=== PATIENT | male | born 1975 | race Caucasian/White ===

== ENCOUNTER 2016-07-21 19:29 | Emergency (ER) | payer OTHER ==
[~2016-07-21 19:29] MED LIST: BUPR15TA PO; CHLO25TA PO; DOXY100C PO; MYCARDIS PO; NORCOTAB PO; REGL10TA6 PO; TRAZ50TA4 PO; ZOLO50TA PO; lortab elixir PO
[2016-07-21] MEDS ORDERED: NORCO, ANEXSIA 5/325MG TABLET (HYDROcodone/ACETAMINOPHEN) As Ordered ONE (20:05)
[2016-07-21 20:19] LABS: BASO % 0.7 % (0.0-1.0); EOS # 0.2 K/mm3 (0.0-0.50); EOS % 2.7 % (0.0-3.0); LARGE UNSTAINED CELL # 0.2 K/mm3 (0.0-0.4); LARGE UNSTAINED CELL % 2.8 % (0.0-4.0); LYMPH # 1.9 K/mm3 (1.5-4.5); LYMPH % 28.8 % (24.0-44.0); MEAN CORPUSCULAR HEMOGLOBIN 30.6 pg (27.0-33.0); MEAN CORPUSCULAR VOLUME 83.3 fl (80.0-96.0); MONO # 0.5 K/mm3 (0.0-0.8); MONO % 6.8 % (0.0-5.0); NEUTROPHILS # 3.9 K/mm3 (1.8-7.7); NEUTROPHILS % 58.2 % (36.0-66.0); PLATELET COUNT, AUTOMATED 277 k/mm3 (150-450); RED CELL DISTRIBUTION WIDTH 11.9 % (11.5-14.5); WHITE BLOOD COUNT 6.7 K/mm3 (4.0-10.0)
[2016-07-21 20:20] LABS: MEAN CORPUSCULAR HGB CONC 36.7 g/dl (32.0-36.5)
[2016-07-21 20:22] LABS: INR 0.98
[2016-07-21 20:41] LABS: ANION GAP 6 MEQ/L (8-16); BLOOD UREA NITROGEN 8 MG/DL (7-18); CALCIUM LEVEL 8.4 MG/DL (8.5-10.1); CARBON DIOXIDE LEVEL 31 MEQ/L (21-32); CHLORIDE LEVEL 104 MEQ/L (98-107); CREATININE FOR GFR 1.18 MG/DL (0.70-1.30); GLOMERULAR FILTRATION RATE > 60.0 (>60); GLUCOSE, FASTING 126 MG/DL (70-105); POTASSIUM SERUM 3.7 MEQ/L (3.5-5.1); SODIUM LEVEL 141 MEQ/L (136-145)
--- NOTE | 2016-07-21 22:10 | REPUSA ---
CLINICAL HISTORY: Pain. COMMENTS: Real time sonography with duplex doppler of the left lower extremity was performed with attention to the major deep venous structures. Evaluation reveals the left common femoral, superficial femoral and popliteal veins to be completely compressible without intraluminal thrombus. There is normal spontaneous phasic flow and augmentation. The greater saphenous/common femoral vein junction is patent. IMPRESSION: No evidence of DVT in left lower extremity.. Thank you for your kind referral of this patient.
[2016-07-21] MEDS ORDERED: NORCO 5/325MG TABLET (BULK) As Ordered ONE (22:53)
--- NOTE | 2016-07-21 22:59 | EDDOCDS ---
Nurse's Notes [facility] Name: Jamir Whitehead Age: 41 yrs Sex: Male : 1975 Arrival Date: 07/21/2016 Time: 19:29 Bed PD Private MD: TNAngel MENDOZA Diagnosis: Pain in left lower leg Presentation: 07/21 19:38 Presenting complaint: Patient states: left leg with painful, firm area near knee. Lower ttb leg edema and redness x3 days. Denies injuries, SOB, fever. Adult Sepsis Screening: The patient does not have new or worsening altered mentation. Patient's respiratory rate is less than 22. Systolic blood pressure is greater than 100. Patient has a qSOFA score of 0- Negative Sepsis Screen. Suicide/Homicide risk assessment- the patient denies having any suicidal and/or homicidal ideations and does not present with any other emotional, behavioral or mental health complaints. 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 Transition of care: patient was not received from another setting of care. 19:38 Acuity: SIRENA Level 3 ttb 19:38 Method Of Arrival: Walkin/Carried/Asstd ttb Triage Assessment: 19:43 General: Appears in no apparent distress, well nourished, well groomed, Behavior is ttb appropriate for age, cooperative, pleasant, quiet. Pain: Location: left leg/foot 7/10. HIV screening NA for this visit Offered previously. Neurological: Level of Consciousness is awake, alert. Respiratory: No deficits noted. Airway is patent Respiratory effort is even, unlabored, Denies cough, shortness of breath. Derm: Skin is normal. Injury Description: No known injury. Historical: - Allergies: no known allergies; - Home Meds: 1. Buproprion 300 mg table daily daily (Last dose: 07/21/2016 08:45) 2. telmisartan 80 mg oral tab 1 tab once daily (Last dose: 07/21/2016 08:45) 3. prazosin 1 mg Oral cap daily (Last dose: 07/21/2016 08:45) 4. zaleplon 10 mg oral cap 1 cap once daily (Last dose: 07/21/2016 08:45) 5. chlorthalidone 25 mg oral tab 1 tab once daily (Last dose: 07/21/2016 08:45) 6. nortriptyline 50 mg Oral cap once daily (Last dose: 07/21/2016 08:45) 7. duloxetine 20 mg Oral cpDR 1 cap daily (Last dose: 07/21/2016 08:45) 8. Lidocaine 2% application to affected area as need three times a day (Last dose: 07/21/2016) - PMHx: Gout; Hypertension; Kidney stones; MRSA; Depression; - PSHx: Lymphnode removal; Right Shoulder Reconstruction; Swatara Teeth; general surgery to left lower abd; - Social history: Smoking status: Patient states was never smoker of tobacco. Patient/guardian denies using alcohol, street drugs, No barriers to communication noted, The patient speaks fluent Wallisian, Speaks appropriately for age. - Family history: Not pertinent. - : The pt / caregiver states he / she is not on anticoagulants. Home medication list is obtained from the patient. - Exposure Risk Screening:: None identified. Screenin:35 Infection Control. elp 22:57 Screening information is obtained from the patient. Fall risk: No risks identified. rs3 Assistance ADL's: requires no assistance with activities of daily living. Abuse/DV Screen: The patient / caregiver reports he/she is: not in a situation that causes fear, pain or injury. Nutritional screening: No deficits noted. Advance Directives: Currently, there is no health care proxy. There is no active DNR order. home support is adequate. Assessment: 22:56 General: Appears in no apparent distress, Behavior is appropriate for age, cooperative. rs3 Pain: Location: left leg. Neurological: Level of Consciousness is awake, alert, Oriented to person, place, time. Respiratory: Airway is patent Respiratory effort is even, unlabored, Respiratory pattern is regular, symmetrical, Breath sounds are clear bilaterally. Derm: Skin is pink, warm & dry. Vital Signs: 19:30 BP 166 / 99; Pulse 94; Resp 18; Temp 99.0; Pulse Ox 97% ; Weight 104.33 kg; Height 71 elp in. (180.34 cm); 22:54 BP 158 / 101; Pulse 88; Resp 18 S; Temp 97.9(O); Pulse Ox 95% on R/A; Pain 5/10; jp4 19:30 Body Mass Index 32.08 (104.33 kg, 180.34 cm) elp Vitals: 19:30 Log In Time: July 21, 2016 at 19:28. [facility] ED Course: 19:30 Patient visited by Kate Ruvalcaba PCA. elp 19:30 [facility] is Private Physician. elp 19:30 Patient moved to Waiting elp 19:31 Patient visited by Kate Ruvalcaba PCA. elp 19:31 Patient moved to Pre RCE elp 19:39 Triage Initiated ttb 19:43 Patient visited by Marilou Davis RN. ttb 19:48 Patient moved to Triage 1 ttb 19:50 Bernardino Tracy RPA-C is PSYCHIATRICP. ck7 19:50 Parviz Dupree DO is Attending Physician. ck7 19:51 Patient visited by Bernardino Tracy RPA-C. ck7 20:11 Patient moved to TR1 rs3 20:11 Pt & Aptt Sent. rs3 20:11 MED Profile Sent. rs3 20:11 CBC with Diff Sent. rs3 20:55 Patient visited by Bernardino Tracy RPA-C. ck7 21:08 [facility] Payment Agreement was scanned into [employer] and attached to record. ks16 21:54 Patient visited by Bernardino Tracy RPA-C. ck7 22:46 Patient visited by Bernardino Tracy RPA-C. ck7 22:47 [facility] is Referral Physician. ck7 22:48 Patient moved to PD jp4 22:55 Patient visited by Sukhjinder Coelho. jp4 22:57 No IV's were initiated during this patient's visit. No procedures done that require rs3 assistance. 22:58 The patient / caregiver is instructed regarding the plan of care and ED course. rs3 22:59 US Lower Extremity R/O DVT Returned. EDMS Administered Medications: 20:11 Drug: HYDROcodone-acetaminophen 1 tabs [hydrocodone 5 mg-acetaminophen 325 mg tablet (1 rs3 tabs)] Route: PO; 22:55 Drug: HYDROcodone-acetaminophen 4 pack- 1 packets [hydrocodone 5 mg-acetaminophen 325 rs3 mg tablet (1 tabs)] {Co-Signature: ttb (Marilou Davis RN).} Route: PO; Order Results: Lab Order: CBC with Diff; SPEC'M 07/21/16 20:06 Test: WHITE BLOOD COUNT; Value: 6.7; Range: 4.0-10.0; Units: K/mm3; Status: F Test: RED BLOOD COUNT; Value: 5.14; Range: 4.30-6.10; Units: M/mm3; Status: F Test: HEMOGLOBIN; Value: 15.7; Range: 14.0-18.0; Units: g/dl; Status: F Test: HEMATOCRIT; Value: 42.8; Range: 42.0-52.0; Units: %; Status: F Test: MEAN CORPUSCULAR VOLUME; Value: 83.3; Range: 80.0-96.0; Units: fl; Status: F Test: MEAN CORPUSCULAR HEMOGLOBIN; Value: 30.6; Range: 27.0-33.0; Units: pg; Status: F Test: MEAN CORPUSCULAR HGB CONC; Value: 36.7; Range: 32.0-36.5; Abnormal: Above high normal; Units: g/dl; Status: F Test: RED CELL DISTRIBUTION WIDTH; Value: 11.9; Range: 11.5-14.5; Units: %; Status: F Test: PLATELET COUNT, AUTOMATED; Value: 277; Range: 150-450; Units: k/mm3; Status: F Test: NEUTROPHILS %; Value: 58.2; Range: 36.0-66.0; Units: %; Status: F Test: LYMPH %; Value: 28.8; Range: 24.0-44.0; Units: %; Status: F Test: MONO %; Value: 6.8; Range: 0.0-5.0; Abnormal: Above high normal; Units: %; Status: F Test: EOS %; Value: 2.7; Range: 0.0-3.0; Units: %; Status: F Test: BASO %; Value: 0.7; Range: 0.0-1.0; Units: %; Status: F Test: LARGE UNSTAINED CELL %; Value: 2.8; Range: 0.0-4.0; Units: %; Status: F Test: NEUTROPHILS #; Value: 3.9; Range: 1.8-7.7; Units: K/mm3; Status: F Test: LYMPH #; Value: 1.9; Range: 1.5-4.5; Units: K/mm3; Status: F Test: MONO #; Value: 0.5; Range: 0.0-0.8; Units: K/mm3; Status: F Test: EOS #; Value: 0.2; Range: 0.0-0.50; Units: K/mm3; Status: F Test: BASO #; Value: 0.0; Range: 0.0-0.2; Units: K/mm3; Status: F Test: LARGE UNSTAINED CELL #; Value: 0.2; Range: 0.0-0.4; Units: K/mm3; Status: F Lab Order: MED Profile; SPEC'M 07/21/16 20:06 Test: GLUCOSE, FASTING; Value: 126; Range: 70-105; Abnormal: Above high normal; Units: MG/DL; Status: F Test: BLOOD UREA NITROGEN; Value: 8; Range: 7-18; Units: MG/DL; Status: F Test: CREATININE FOR GFR; Value: 1.18; Range: 0.70-1.30; Units: MG/DL; Status: F Test: GLOMERULAR FILTRATION RATE; Value: > 60.0; Range: >60; Status: F Test: SODIUM LEVEL; Value: 141; Range: 136-145; Units: MEQ/L; Status: F Test: POTASSIUM SERUM; Value: 3.7; Range: 3.5-5.1; Units: MEQ/L; Status: F Test: CHLORIDE LEVEL; Value: 104; Range: 98-107; Units: MEQ/L; Status: F Test: CARBON DIOXIDE LEVEL; Value: 31; Range: 21-32; Units: MEQ/L; Status: F Test: ANION GAP; Value: 6; Range: 8-16; Abnormal: Below low normal; Units: MEQ/L; Status: F Test: CALCIUM LEVEL; Value: 8.4; Range: 8.5-10.1; Abnormal: Below low normal; Units: MG/DL; Status: F Test Note: ; Units are mL/min/1.73 m2 Chronic Kidney Disease Staging per NKF: Stage I & II GFR >=60 Normal to Mildly Decreased Stage III GFR 30-59 Moderately Decreased Stage IV GFR 15-29 Severely Decreased Stage V GFR <15 Very Little GFR Left ESRD GFR <15 on FACTORY SUPERVISOR Lab Order: Pt & Aptt; SPEC'M 07/21/16 20:06 Test: PROTHROMBIN TIME; Value: 13.1; Range: 12.3-14.5; Units: SECONDS; Status: F Test: INR; Value: 0.98; Status: F Test: PARTIAL THROMBOPLASTIN TIME; Value: 28.4; Range: 26.6-37.1; Units: SECONDS; Status: F Test Note: ; THERAPUTIC HUMAN INR VALUES INDICATIONS NORMAL RANGES PROPHYLAXIS/TREATMENT OF: VENOUS THROMBOSIS 2.0-3.0 PULMONARY EMBOLISM 2.0-3.0 PREVENTION OF SYSTEMIC EMBOLISM FROM: TISSUE HEART VALVES 2.0-3.0 ACUTE MYOCARDIAL INFARCTION 2.0-3.0 VALVULAR HEART DISEASE 2.0-3.0 ATRIAL FIBRILLATION 2.0-3.0 MECHANICAL VALVES(HIGH RISK) 2.5-3.5 RECURRENT MYOCARDIAL INFARCTION 2.5-3.5 Radiology Order: US Lower Extremity R/O DVT Test: US Lower Extremity R/O DVT REASON FOR EXAMINATION: Deformity/Swelling; ; CLINICAL HISTORY: Pain.; COMMENTS:; Real time sonography with duplex doppler of the left lower extremity was performed with attention to; the major deep venous structures.; Evaluation reveals the left common femoral, superficial femoral and popliteal veins to be completely; compressible without intraluminal thrombus. There is normal spontaneous phasic flow and augmentation.; The greater saphenous/common femoral vein junction is patent.; IMPRESSION:; No evidence of DVT in left lower extremity..; Thank you for your kind referral of this patient.; ; Outcome: 22:48 Discharge ordered by Provider. ck7 22:57 Discharge Assessment: patient administered narcotics - no. The following High Risk rs3 Discharge criteria are identified: None. Discharged to home with family. Condition: stable. Discharge instructions given to patient, Instructed on discharge instructions, follow up and referral plans. medication usage, Demonstrated understanding of instructions, medications, Pt was receptive of discharge instructions/ teaching. Prescriptions given X. Prescriptions given X 1. No special radiology studies were completed. Property :Personal belongings accompany Pt. 22:58 Patient left the ED. rs3 Signatures: Dispatcher [employer] EDGeorgette Singleton,RN RN rs3 Bernardino Tracy, RPA-C RPA-Cck7 Marilou aDvis RN RN ttb Kate Ruvalcaba, GAMER GAMER elp Cleme, Sukhjinder jp4 Vernell Hahn, Reg Reg ks16 Marilou Davis RN ttb MTDD
--- NOTE | 2016-07-21 22:59 | EDDOCDS ---
Physician Documentation [facility] Name: Jamir Whitehead Age: 41 yrs Sex: Male : 1975 Arrival Date: 07/21/2016 Time: 19:29 Bed [facility] Disposition: 07/21/16 22:48 Discharged to Home/Self Care. Impression: Pain in left lower leg. - Condition is Stable. - Discharge Instructions: Musculoskeletal Pain. - Prescriptions for Hemphill 5- 325 mg Oral Tablet - take 1 tablet by ORAL route every 6 hours As needed MDD: 4 tabs; 6 tablet. - Medication Reconciliation, Local Pharmacy Hours form. - [facility]; When: 2 - 3 days; Reason: Recheck today's complaints, Continuance of care. - Problem is new. - Symptoms have improved. - Notes: USE MEDICATION INSTRUCTED, FOLLOW UP WITH YOUR DOCTOR ON SATURDAY, RETURN TO THE ER IF THE SYMPTOMS WORSEN OR BECOME CONCERNING Historical: - Allergies: no known allergies; - Home Meds: 1. Buproprion 300 mg table daily daily (Last dose: 07/21/2016 08:45) 2. telmisartan 80 mg oral tab 1 tab once daily (Last dose: 07/21/2016 08:45) 3. prazosin 1 mg Oral cap daily (Last dose: 07/21/2016 08:45) 4. zaleplon 10 mg oral cap 1 cap once daily (Last dose: 07/21/2016 08:45) 5. chlorthalidone 25 mg oral tab 1 tab once daily (Last dose: 07/21/2016 08:45) 6. nortriptyline 50 mg Oral cap once daily (Last dose: 07/21/2016 08:45) 7. duloxetine 20 mg Oral cpDR 1 cap daily (Last dose: 07/21/2016 08:45) 8. Lidocaine 2% application to affected area as need three times a day (Last dose: 07/21/2016) - PMHx: Gout; Hypertension; Kidney stones; MRSA; Depression; - PSHx: Lymphnode removal; Right Shoulder Reconstruction; Bowie Teeth; general surgery to left lower abd; - Social history: Smoking status: Patient states was never smoker of tobacco. Patient/guardian denies using alcohol, street drugs, No barriers to communication noted, The patient speaks fluent Persian, Speaks appropriately for age. - Family history: Not pertinent. - : The pt / caregiver states he / she is not on anticoagulants. Home medication list is obtained from the patient. - Exposure Risk Screening:: None identified. Vital Signs: 07/21 19:30 BP 166 / 99; Pulse 94; Resp 18; Temp 99.0; Pulse Ox 97% ; Weight 104.33 kg / 230.01 elp lbs; Height 71 in. (180.34 cm); 22:54 BP 158 / 101; Pulse 88; Resp 18 S; Temp 97.9(O); Pulse Ox 95% on R/A; Pain 5/10; jp4 19:30 Body Mass Index 32.08 (104.33 kg, 180.34 cm) elp MDM: 19:55 Financial registration complete. ks16 19:58 HYDROcodone-acetaminophen 5 mg-325 mg 1 tabs PO once ordered. ck7 19:59 CBC with Diff Ordered. EDMS 19:59 MED Profile Ordered. EDMS 19:59 Pt & Aptt Ordered. EDMS 19:59 US Lower Extremity R/O DVT Ordered. EDMS 20:04 Knee, Complete Ordered. EDMS 20:55 CBC with Diff Reviewed. ck7 20:55 MED Profile Reviewed. ck7 20:55 Pt & Aptt Reviewed. ck7 21:08 [facility] Payment Agreement was scanned into [employer] and attached to record. ks16 22:50 HYDROcodone-acetaminophen 4 pack- 5 mg-325 mg 1 packets PO Per package directions; ck7 Dispense with patient. 1 po q4h prn for pain ordered. Administered Medications: 20:11 Drug: HYDROcodone-acetaminophen 1 tabs [hydrocodone 5 mg-acetaminophen 325 mg tablet (1 rs3 tabs)] Route: PO; 22:55 Drug: HYDROcodone-acetaminophen 4 pack- 1 packets [hydrocodone 5 mg-acetaminophen 325 rs3 mg tablet (1 tabs)] {Co-Signature: ttb (Marilou Davis RN).} Route: PO; Signatures: Dispatcher [employer] EDMS Georgette Romero RN RN rs3 Bernardino Tracy, MARIAN-C RPA-Cck7 Marilou Davis RN RN ttb Vernell Hahn, Reg Reg ks16 Marilou Ryan RN ttb The chart was reviewed and I authenticate all verbal orders and agree with the evaluation and treatment provided.Attachments: 21:08 [facility] Payment Agreement ks16 MTDD
--- NOTE | 2016-07-22 13:42 | REP ---
LEFT KNEE SERIES, COMPLETE: 07/21/2016. Clinical history: Pain and swelling. Findings: Five views are provided. Some minor prepatellar swelling on the sunrise view but no patellar subluxation, dislocation or fracture. No joint space narrowing. I cannot confirm a definite suprapatellar effusion on the lateral view. Medial and lateral compartments without narrowing. There are tiny spurs tibial spines but no loose body, osteochondral defect, avulsion, displaced fracture or other acute finding. Impression: 1. Minor degenerative changes and some prepatellar swelling. No other acute finding. Signed by Pepe Eller MD 07/22/2016 07:22 P
--- NOTE | 2016-07-23 23:59 | EDDOCDS ---
Nurse's Notes [facility] Name: Jamir Whitehead Age: 41 yrs Sex: Male : 1975 Arrival Date: 07/21/2016 Time: 19:29 Bed PD Private MD: MSAngel MENDOZA Diagnosis: Pain in left lower leg Presentation: 07/21 19:38 Presenting complaint: Patient states: left leg with painful, firm area near knee. Lower ttb leg edema and redness x3 days. Denies injuries, SOB, fever. Adult Sepsis Screening: The patient does not have new or worsening altered mentation. Patient's respiratory rate is less than 22. Systolic blood pressure is greater than 100. Patient has a qSOFA score of 0- Negative Sepsis Screen. Suicide/Homicide risk assessment- the patient denies having any suicidal and/or homicidal ideations and does not present with any other emotional, behavioral or mental health complaints. 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 Transition of care: patient was not received from another setting of care. 19:38 Acuity: SIRENA Level 3 ttb 19:38 Method Of Arrival: Walkin/Carried/Asstd ttb Triage Assessment: 19:43 General: Appears in no apparent distress, well nourished, well groomed, Behavior is ttb appropriate for age, cooperative, pleasant, quiet. Pain: Location: left leg/foot 7/10. HIV screening NA for this visit Offered previously. Neurological: Level of Consciousness is awake, alert. Respiratory: No deficits noted. Airway is patent Respiratory effort is even, unlabored, Denies cough, shortness of breath. Derm: Skin is normal. Injury Description: No known injury. Historical: - Allergies: no known allergies; - Home Meds: 1. Buproprion 300 mg table daily daily (Last dose: 07/21/2016 08:45) 2. telmisartan 80 mg oral tab 1 tab once daily (Last dose: 07/21/2016 08:45) 3. prazosin 1 mg Oral cap daily (Last dose: 07/21/2016 08:45) 4. zaleplon 10 mg oral cap 1 cap once daily (Last dose: 07/21/2016 08:45) 5. chlorthalidone 25 mg oral tab 1 tab once daily (Last dose: 07/21/2016 08:45) 6. nortriptyline 50 mg Oral cap once daily (Last dose: 07/21/2016 08:45) 7. duloxetine 20 mg Oral cpDR 1 cap daily (Last dose: 07/21/2016 08:45) 8. Lidocaine 2% application to affected area as need three times a day (Last dose: 07/21/2016) - PMHx: Gout; Hypertension; Kidney stones; MRSA; Depression; - PSHx: Lymphnode removal; Right Shoulder Reconstruction; [place] Teeth; general surgery to left lower abd; - Social history: Smoking status: Patient states was never smoker of tobacco. Patient/guardian denies using alcohol, street drugs, No barriers to communication noted, The patient speaks fluent Yemeni, Speaks appropriately for age. - Family history: Not pertinent. - : The pt / caregiver states he / she is not on anticoagulants. Home medication list is obtained from the patient. - Exposure Risk Screening:: None identified. Screenin:35 Infection Control. elp 22:57 Screening information is obtained from the patient. Fall risk: No risks identified. rs3 Assistance ADL's: requires no assistance with activities of daily living. Abuse/DV Screen: The patient / caregiver reports he/she is: not in a situation that causes fear, pain or injury. Nutritional screening: No deficits noted. Advance Directives: Currently, there is no health care proxy. There is no active DNR order. home support is adequate. Assessment: 22:56 General: Appears in no apparent distress, Behavior is appropriate for age, cooperative. rs3 Pain: Location: left leg. Neurological: Level of Consciousness is awake, alert, Oriented to person, place, time. Respiratory: Airway is patent Respiratory effort is even, unlabored, Respiratory pattern is regular, symmetrical, Breath sounds are clear bilaterally. Derm: Skin is pink, warm & dry. Vital Signs: 19:30 BP 166 / 99; Pulse 94; Resp 18; Temp 99.0; Pulse Ox 97% ; Weight 104.33 kg; Height 71 elp in. (180.34 cm); 22:54 BP 158 / 101; Pulse 88; Resp 18 S; Temp 97.9(O); Pulse Ox 95% on R/A; Pain 5/10; jp4 19:30 Body Mass Index 32.08 (104.33 kg, 180.34 cm) elp Vitals: 19:30 Log In Time: July 21, 2016 at 19:28. [facility] ED Course: 19:30 Patient visited by Kate Ruvalcaba PCA. elp 19:30 [facility] is Private Physician. elp 19:30 Patient moved to Waiting elp 19:31 Patient visited by Kate Ruvalcaba PCA. elp 19:31 Patient moved to Pre RCE elp 19:39 Triage Initiated ttb 19:43 Patient visited by Marilou Davis RN. ttb 19:48 Patient moved to Triage 1 ttb 19:50 [facility] Tracy [facility] ck7 19:50 Parviz Durpee DO is Attending Physician. ck7 19:51 Patient visited by Bernardino Tracy RPA-C. ck7 20:11 Patient moved to TR1 rs3 20:11 Pt & Aptt Sent. rs3 20:11 MED Profile Sent. rs3 20:11 CBC with Diff Sent. rs3 20:55 Patient visited by Bernardino Tracy RPA-C. ck7 21:08 [facility] Payment Agreement was scanned into [employer] and attached to record. ks16 21:54 Patient visited by Bernardino Tracy RPA-C. ck7 22:46 Patient visited by Bernardino Tracy RPA-C. ck7 22:47 [facility] is Referral Physician. ck7 22:48 Patient moved to PD jp4 22:55 Patient visited by Sukhjinder Coelho. jp4 22:57 No IV's were initiated during this patient's visit. No procedures done that require rs3 assistance. 22:58 The patient / caregiver is instructed regarding the plan of care and ED course. rs3 22:59 US Lower Extremity R/O DVT Returned. EDMS 07/22 13:56 Knee, Complete Returned. EDMS 22:53 T-Sheet-- Draft Copy was scanned into [employer] and attached to record. klr 07/23 10:34 Radiology Report was scanned into [employer] and attached to record. gb Administered Medications: 07/21 20:11 Drug: HYDROcodone-acetaminophen 1 tabs [hydrocodone 5 mg-acetaminophen 325 mg tablet (1 rs3 tabs)] Route: PO; 22:55 Drug: HYDROcodone-acetaminophen 4 pack- 1 packets [hydrocodone 5 mg-acetaminophen 325 rs3 mg tablet (1 tabs)] {Co-Signature: ttb (Marilou Davis RN).} Route: PO; Order Results: Lab Order: CBC with Diff; SPEC'M 07/21/16 20:06 Test: WHITE BLOOD COUNT; Value: 6.7; Range: 4.0-10.0; Units: K/mm3; Status: F Test: RED BLOOD COUNT; Value: 5.14; Range: 4.30-6.10; Units: M/mm3; Status: F Test: HEMOGLOBIN; Value: 15.7; Range: 14.0-18.0; Units: g/dl; Status: F Test: HEMATOCRIT; Value: 42.8; Range: 42.0-52.0; Units: %; Status: F Test: MEAN CORPUSCULAR VOLUME; Value: 83.3; Range: 80.0-96.0; Units: fl; Status: F Test: MEAN CORPUSCULAR HEMOGLOBIN; Value: 30.6; Range: 27.0-33.0; Units: pg; Status: F Test: MEAN CORPUSCULAR HGB CONC; Value: 36.7; Range: 32.0-36.5; Abnormal: Above high normal; Units: g/dl; Status: F Test: RED CELL DISTRIBUTION WIDTH; Value: 11.9; Range: 11.5-14.5; Units: %; Status: F Test: PLATELET COUNT, AUTOMATED; Value: 277; Range: 150-450; Units: k/mm3; Status: F Test: NEUTROPHILS %; Value: 58.2; Range: 36.0-66.0; Units: %; Status: F Test: LYMPH %; Value: 28.8; Range: 24.0-44.0; Units: %; Status: F Test: MONO %; Value: 6.8; Range: 0.0-5.0; Abnormal: Above high normal; Units: %; Status: F Test: EOS %; Value: 2.7; Range: 0.0-3.0; Units: %; Status: F Test: BASO %; Value: 0.7; Range: 0.0-1.0; Units: %; Status: F Test: LARGE UNSTAINED CELL %; Value: 2.8; Range: 0.0-4.0; Units: %; Status: F Test: NEUTROPHILS #; Value: 3.9; Range: 1.8-7.7; Units: K/mm3; Status: F Test: LYMPH #; Value: 1.9; Range: 1.5-4.5; Units: K/mm3; Status: F Test: MONO #; Value: 0.5; Range: 0.0-0.8; Units: K/mm3; Status: F Test: EOS #; Value: 0.2; Range: 0.0-0.50; Units: K/mm3; Status: F Test: BASO #; Value: 0.0; Range: 0.0-0.2; Units: K/mm3; Status: F Test: LARGE UNSTAINED CELL #; Value: 0.2; Range: 0.0-0.4; Units: K/mm3; Status: F Lab Order: MED Profile; [facility]'M 07/21/16 20:06 Test: GLUCOSE, FASTING; Value: 126; Range: 70-105; Abnormal: Above high normal; Units: MG/DL; Status: F Test: BLOOD UREA NITROGEN; Value: 8; Range: 7-18; Units: MG/DL; Status: F Test: CREATININE FOR GFR; Value: 1.18; Range: 0.70-1.30; Units: MG/DL; Status: F Test: GLOMERULAR FILTRATION RATE; Value: > 60.0; Range: >60; Status: F Test: SODIUM LEVEL; Value: 141; Range: 136-145; Units: MEQ/L; Status: F Test: POTASSIUM SERUM; Value: 3.7; Range: 3.5-5.1; Units: MEQ/L; Status: F Test: CHLORIDE LEVEL; Value: 104; Range: 98-107; Units: MEQ/L; Status: F Test: CARBON DIOXIDE LEVEL; Value: 31; Range: 21-32; Units: MEQ/L; Status: F Test: ANION GAP; Value: 6; Range: 8-16; Abnormal: Below low normal; Units: MEQ/L; Status: F Test: CALCIUM LEVEL; Value: 8.4; Range: 8.5-10.1; Abnormal: Below low normal; Units: MG/DL; Status: F Test Note: ; Units are mL/min/1.73 m2 Chronic Kidney Disease Staging per NKF: Stage I & II GFR >=60 Normal to Mildly Decreased Stage III GFR 30-59 Moderately Decreased Stage IV GFR 15-29 Severely Decreased Stage V GFR <15 Very Little GFR Left ESRD GFR <15 on FORM WORKER Lab Order: Pt & Aptt; SPEC'M 07/21/16 20:06 Test: PROTHROMBIN TIME; Value: 13.1; Range: 12.3-14.5; Units: SECONDS; Status: F Test: INR; Value: 0.98; Status: F Test: PARTIAL THROMBOPLASTIN TIME; Value: 28.4; Range: 26.6-37.1; Units: SECONDS; Status: F Test Note: ; THERAPUTIC HUMAN INR VALUES INDICATIONS NORMAL RANGES PROPHYLAXIS/TREATMENT OF: VENOUS THROMBOSIS 2.0-3.0 PULMONARY EMBOLISM 2.0-3.0 PREVENTION OF SYSTEMIC EMBOLISM FROM: TISSUE HEART VALVES 2.0-3.0 ACUTE MYOCARDIAL INFARCTION 2.0-3.0 VALVULAR HEART DISEASE 2.0-3.0 ATRIAL FIBRILLATION 2.0-3.0 MECHANICAL VALVES(HIGH RISK) 2.5-3.5 RECURRENT MYOCARDIAL INFARCTION 2.5-3.5 Radiology Order: US Lower Extremity R/O DVT Test: US Lower Extremity R/O DVT REASON FOR EXAMINATION: Deformity/Swelling; ; CLINICAL HISTORY: Pain.; COMMENTS:; Real time sonography with duplex doppler of the left lower extremity was performed with attention to; the major deep venous structures.; Evaluation reveals the left common femoral, superficial femoral and popliteal veins to be completely; compressible without intraluminal thrombus. There is normal spontaneous phasic flow and augmentation.; The greater saphenous/common femoral vein junction is patent.; IMPRESSION:; No evidence of DVT in left lower extremity..; Thank you for your kind referral of this patient.; ; Radiology Order: Knee, Complete Test: Knee, Complete REASON FOR EXAMINATION: Deformity/Swelling; LEFT KNEE SERIES, COMPLETE: 07/21/2016.; ; Clinical history: Pain and swelling.; ; Findings: Five views are provided. Some minor prepatellar swelling on the; sunrise view but no patellar subluxation, dislocation or fracture. No joint; space narrowing. I cannot confirm a definite suprapatellar effusion on the; lateral view. Medial and lateral compartments without narrowing. There are tiny; spurs tibial spines but no loose body, osteochondral defect, avulsion, displaced; fracture or other acute finding.; ; Impression:; ; 1. Minor degenerative changes and some prepatellar swelling. No other acute; finding.; ; ; Signed by; Pepe Eller MD 07/22/2016 07:22 P; Outcome: 22:48 Discharge ordered by Provider. ck7 22:57 Discharge Assessment: patient administered narcotics - no. The following High Risk rs3 Discharge criteria are identified: None. Discharged to home with family. Condition: stable. Discharge instructions given to patient, Instructed on discharge instructions, follow up and referral plans. medication usage, Demonstrated understanding of instructions, medications, Pt was receptive of discharge instructions/ teaching. Prescriptions given X. Prescriptions given X 1. No special radiology studies were completed. Property :Personal belongings accompany Pt. 22:58 Patient left the ED. rs3 Signatures: Dispatcher [employer] EDMS Debbie Rhoades, Reg Reg gb Georgette RomeroRN RN rs3 Bernardino Tracy, RPA-C RPA-Cck7 Marilou Davis, SAÚL RN ttb Kate Ruvalcaba, ONCOLOGY COORDINATOR ONCOLOGY COORDINATOR elp Laquita, Sukhjinder jp4 Vernell Hahn, Reg Reg ks16 [place] klr Marilou Davis RN ttb Chart Complete MTDD
--- NOTE | 2016-07-23 23:59 | EDDOCDS ---
Physician Documentation [facility] Name: Jamir Whitehead Age: 41 yrs Sex: Male : 1975 Arrival Date: 07/21/2016 Time: 19:29 Bed [facility] Disposition: 07/21/16 22:48 Discharged to Home/Self Care. Impression: Pain in left lower leg. - Condition is Stable. - Discharge Instructions: Musculoskeletal Pain. - Prescriptions for [place] 5- 325 mg Oral Tablet - take 1 tablet by ORAL route every 6 hours As needed MDD: 4 tabs; 6 tablet. - Medication Reconciliation, Local Pharmacy Hours form. - [facility]; When: 2 - 3 days; Reason: Recheck today's complaints, Continuance of care. - Problem is new. - Symptoms have improved. - Notes: USE MEDICATION INSTRUCTED, FOLLOW UP WITH YOUR DOCTOR ON SATURDAY, RETURN TO THE ER IF THE SYMPTOMS WORSEN OR BECOME CONCERNING Historical: - Allergies: no known allergies; - Home Meds: 1. Buproprion 300 mg table daily daily (Last dose: 07/21/2016 08:45) 2. telmisartan 80 mg oral tab 1 tab once daily (Last dose: 07/21/2016 08:45) 3. prazosin 1 mg Oral cap daily (Last dose: 07/21/2016 08:45) 4. zaleplon 10 mg oral cap 1 cap once daily (Last dose: 07/21/2016 08:45) 5. chlorthalidone 25 mg oral tab 1 tab once daily (Last dose: 07/21/2016 08:45) 6. nortriptyline 50 mg Oral cap once daily (Last dose: 07/21/2016 08:45) 7. duloxetine 20 mg Oral cpDR 1 cap daily (Last dose: 07/21/2016 08:45) 8. Lidocaine 2% application to affected area as need three times a day (Last dose: 07/21/2016) - PMHx: Gout; Hypertension; Kidney stones; MRSA; Depression; - PSHx: Lymphnode removal; Right Shoulder Reconstruction; [place] Teeth; general surgery to left lower abd; - Social history: Smoking status: Patient states was never smoker of tobacco. Patient/guardian denies using alcohol, street drugs, No barriers to communication noted, The patient speaks fluent Georgian, Speaks appropriately for age. - Family history: Not pertinent. - : The pt / caregiver states he / she is not on anticoagulants. Home medication list is obtained from the patient. - Exposure Risk Screening:: None identified. Vital Signs: 07/21 19:30 BP 166 / 99; Pulse 94; Resp 18; Temp 99.0; Pulse Ox 97% ; Weight 104.33 kg / 230.01 elp lbs; Height 71 in. (180.34 cm); 22:54 BP 158 / 101; Pulse 88; Resp 18 S; Temp 97.9(O); Pulse Ox 95% on R/A; Pain 5/10; jp4 19:30 Body Mass Index 32.08 (104.33 kg, 180.34 cm) elp MDM: 19:55 Financial registration complete. ks16 19:58 HYDROcodone-acetaminophen 5 mg-325 mg 1 tabs PO once ordered. ck7 19:59 CBC with Diff Ordered. EDMS 19:59 MED Profile Ordered. EDMS 19:59 Pt & Aptt Ordered. EDMS 19:59 US Lower Extremity R/O DVT Ordered. EDMS 20:04 Knee, Complete Ordered. EDMS 20:55 CBC with Diff Reviewed. ck7 20:55 MED Profile Reviewed. ck7 20:55 Pt & Aptt Reviewed. ck7 21:08 [facility] Payment Agreement was scanned into [employer] and attached to record. ks16 22:50 HYDROcodone-acetaminophen 4 pack- 5 mg-325 mg 1 packets PO Per package directions; ck7 Dispense with patient. 1 po q4h prn for pain ordered. 07/22 22:53 T-Sheet-- Draft Copy was scanned into [employer] and attached to record. klr 07/23 10:34 Radiology Report was scanned into [employer] and attached to record. gb Administered Medications: 07/21 20:11 Drug: HYDROcodone-acetaminophen 1 tabs [hydrocodone 5 mg-acetaminophen 325 mg tablet (1 rs3 tabs)] Route: PO; 22:55 Drug: HYDROcodone-acetaminophen 4 pack- 1 packets [hydrocodone 5 mg-acetaminophen 325 rs3 mg tablet (1 tabs)] {Co-Signature: ttb (Marilou Davis RN).} Route: PO; Signatures: Dispatcher [employer] EDMS Debbie Rhoades, Reg Reg gb Georgette Romero RN RN rs3 Bernardino Tracy, RPA-C RPA-Cck7 Marilou Davis RN RN ttb Vernell Hahn, Reg Reg ks16 [place] klr Marilou Davis RN ttruma The chart was reviewed and I authenticate all verbal orders and agree with the evaluation and treatment provided.Attachments: 21:08 [facility] Payment Agreement [email or web address] 07/22 22:53 T-Sheet-- Draft Copy klr Chart Complete MTDD
--- NOTE | 2016-07-23 23:59 | EDDOCDS ---
Physician Documentation [facility] Name: Jamir Whitehead Age: 41 yrs Sex: Male : 1975 Arrival Date: 07/21/2016 Time: 19:29 Bed [facility] Dis[facility]: 07/21/16 22:48 Discharged to Home/Self Care. Impression: Pain in left lower leg. - Condition is Stable. - Discharge Instructions: Musculoskeletal Pain. - Prescriptions for [place] 5- 325 mg Oral Tablet - take 1 tablet by ORAL route every 6 hours As needed MDD: 4 tabs; 6 tablet. - Medication Reconciliation, Local Pharmacy Hours form. - [facility]; When: 2 - 3 days; Reason: Recheck today's complaints, Continuance of care. - Problem is new. - Symptoms have improved. - Notes: USE MEDICATION INSTRUCTED, FOLLOW UP WITH YOUR DOCTOR ON SATURDAY, RETURN TO THE ER IF THE SYMPTOMS WORSEN OR BECOME CONCERNING Historical: - Allergies: no known allergies; - Home Meds: 1. Buproprion 300 mg table daily daily (Last dose: 07/21/2016 08:45) 2. telmisartan 80 mg oral tab 1 tab once daily (Last dose: 07/21/2016 08:45) 3. prazosin 1 mg Oral cap daily (Last dose: 07/21/2016 08:45) 4. zaleplon 10 mg oral cap 1 cap once daily (Last dose: 07/21/2016 08:45) 5. chlorthalidone 25 mg oral tab 1 tab once daily (Last dose: 07/21/2016 08:45) 6. nortriptyline 50 mg Oral cap once daily (Last dose: 07/21/2016 08:45) 7. duloxetine 20 mg Oral cpDR 1 cap daily (Last dose: 07/21/2016 08:45) 8. Lidocaine 2% application to affected area as need three times a day (Last dose: 07/21/2016) - PMHx: Gout; Hypertension; Kidney stones; MRSA; Depression; - PSHx: Lymphnode removal; Right Shoulder Reconstruction; [place] Teeth; general surgery to left lower abd; - Social history: Smoking status: Patient states was never smoker of tobacco. Patient/guardian denies using alcohol, street drugs, No barriers to communication noted, The patient speaks fluent Latvian, Speaks appropriately for age. - Family history: Not pertinent. - : The pt / caregiver states he / she is not on anticoagulants. Home medication list is obtained from the patient. - Exposure Risk Screening:: None identified. Vital Signs: 07/21 19:30 BP 166 / 99; Pulse 94; Resp 18; Temp 99.0; Pulse Ox 97% ; Weight 104.33 kg / 230.01 elp lbs; Height 71 in. (180.34 cm); 22:54 BP 158 / 101; Pulse 88; Resp 18 S; Temp 97.9(O); Pulse Ox 95% on R/A; Pain 5/10; jp4 19:30 Body Mass Index 32.08 (104.33 kg, 180.34 cm) elp MDM: 19:55 Financial registration complete. ks16 19:58 HYDROcodone-acetaminophen 5 mg-325 mg 1 tabs PO once ordered. ck7 19:59 CBC with Diff Ordered. EDMS 19:59 MED Profile Ordered. EDMS 19:59 Pt & Aptt Ordered. EDMS 19:59 US Lower Extremity R/O DVT Ordered. EDMS 20:04 Knee, Complete Ordered. EDMS 20:55 CBC with Diff Reviewed. ck7 20:55 MED Profile Reviewed. ck7 20:55 Pt & Aptt Reviewed. ck7 21:08 [facility] Payment Agreement was scanned into [email or web address] and attached to record. ks16 22:50 HYDROcodone-acetaminophen 4 pack- 5 mg-325 mg 1 packets PO Per package directions; ck7 Dispense with patient. 1 po q4h prn for pain ordered. 07/22 22:53 T-Sheet-- Draft Copy was scanned into [email or web address] and attached to record. klr 07/23 10:34 Radiology Report was scanned into [email or web address] and attached to record. gb Administered Medications: 07/21 20:11 Drug: HYDROcodone-acetaminophen 1 tabs [hydrocodone 5 mg-acetaminophen 325 mg tablet (1 rs3 tabs)] Route: PO; 22:55 Drug: HYDROcodone-acetaminophen 4 pack- 1 packets [hydrocodone 5 mg-acetaminophen 325 rs3 mg tablet (1 tabs)] {Co-Signature: ttb (Marilou Davis RN).} Route: PO; Signatures: Dispatcher [employer] EDMS Debbie Rhoades, Reg Reg gb Georgette Romero RN RN rs3 Bernardino Tracy, RPA-C RPA-Cck7 Marilou Davis RN RN ttb Vernell Hahn, Reg Reg ks16 [place] klr Marilou Davis RN ttruma The chart was reviewed and I authenticate all verbal orders and agree with the evaluation and treatment provided.Attachments: 21:08 [facility] Payment Agreement [email or web address] 07/22 22:53 T-Sheet-- Draft Copy klr Chart Complete MTDD
== END 2016-07-21 22:08 | disposition home or self-care (01) ==
LOC: M ED 19:29
DX: M79.605 Pain in left leg (principal); I10 Essential (primary) hypertension; M10.9 Gout, unspecified; F33.9 Major depressive disorder, recurrent, unspecified; Z86.14 Personal history of Methicillin resistant Staphylococcus aureus infection; Z79.899 Other long term (current) drug therapy

== ENCOUNTER → 2016-08-08 | Outpatient (CLI) | payer OTHER ==
--- NOTE | 2016-08-08 23:49 | ECWPNPC ---
PATIENT NAME: SERENA CAGE : 1975 GENDER: MALE VISIT DATE: 08/08/2016 DISCHARGE DATE: 08/08/16 1257 VISIT LOCKED DATE TIME: PHYSICIAN: EDUARD MORENO RESOURCE: EDUARD MORENO REASON FOR APPOINTMENT 1. MERALGIA HISTORY OF PRESENT ILLNESS NEW PATIENT CONSULT: WHEN DID YOUR PAIN FIRST START? . BRIEFLY DESCRIBE HOW YOUR PAIN STARTED? . HOW DOES YOUR PAIN CHANGE WITH TIME? . DOES YOUR PAIN AWAKEN YOU FROM SLEEP? . HOW MANY HOURS OF SLEEP DO YOU NORMALLY GET? . ANY DIAGNOSTIC TESTING? . FACILITY WHERE TESTS WERE DONE? ____. PAIN TREATMENT TREATMENT YES CANCER HAVE YOU EVER HAD ANY TYPE OF CANCER?NO NO. 41 Y/O MALE REFERRED BY FOR EVALUATION OF LEFT LATERAL FEMORAL NEURALGIA.HAD DEBRIDEMENT OF MRSA INFECTION LEFT LOWER ABDOMEN.REPORTS LEFT LATERAL THIGH NUMBNESS.REPORTS PINS AND NEEDLE PAIN AGGREVATED BY LIGHT TOUCH.HAS TRIALED GABAPENTIN THAT CAUSED MENTAL CHANGES AND THAT WAS STOPPED.STARTED CYMBALTA 20MG DAILY PRESCRIBED BY DR. MAURO ONE MONTH AGO WITHOUT IMPROVEMENT.TAKING AMITRIPTYLINE 50MG AT HS WHICH IS NOT HELPING.RATING PAIN VAS 5/10.DR. DIANE CAME IN AND EXAMINED PATIENT.HE IS SUGGESTING TRIAL OF LATERAL FEMORAL CUTANEOUS NERVE BLOCK AFTER MEDICAL CLEARANCE FROM DR.DUAH ANDREY BRITT DUE TO REOCCURENT MRSA INFECTION.LAST MRSA INFECTION WAS JANUARY 2016 AND LOCATION WAS LEFT ELBOW. PAIN SCREENING: PATIENT HAS A COMPLAINT OF ACUTE OR CHRONIC PAIN YES FALL RISK SCREENING: SCREENING :NO FALLS IN THE PAST YEAR [facility] INVENTORY: QUESTIONNAIRE ASSESSEDTBD SCORE VALUE CALCULATED TBD CURRENT MEDICATIONS TAKING CHLORTHALIDONE 12.5 12.5MG TABLET ORAL , NOTES: 1/2 OF 25MG TABLET TAKING PRAZOSIN HCL 1 MG CAPSULE 3 CAPSULE AT BEDTIME ORALLY ONCE A DAY TOTAL OF 3 MG TAKING TELMISARTAN 80 MG TABLET 1 TABLET ORALLY ONCE A DAY TAKING BUPROPION HCL (XL) 300 MG TABLET EXTENDED RELEASE 24 HOUR 1 TABLET IN THE MORNING ORALLY ONCE A DAY TAKING NORTRIPTYLINE HCL 50 MG CAPSULE 1 CAPSULE AT BEDTIME ORALLY ONCE A DAY TAKING RAMELTEON 8 MG TABLET 1 TABLET AT BEDTIME NEEDED ORALLY ONCE A DAY TAKING LIDOCAINE HCL 2 % GEL 1 APPLICATION TO AFFECTED AREA NEEDED EXTERNALLY THREE TIMES A DAY TAKING ZALEPLON 5 MG CAPSULE 1 CAPSULE AT BEDTIME NEEDED ORALLY ONCE A DAY NOT-TAKING CAPSAICIN 0.025 % CREAM 1 APPLICATION TO AFFECTED AREA EXTERNALLY THREE TIMES A DAY MEDICATION LIST REVIEWED AND RECONCILED WITH THE PATIENT PAST MEDICAL HISTORY MRSA PTSD SLEEP APNEA HTN ALLERGIES N.K.D.A. SURGICAL HISTORY RT SHOULDER 2016 MRSA LEFT INQUINAL 2014 WISDOM 1997 LYMPHNODE 1980 FAMILY HISTORY FATHER: 54 YRS MOTHER: ALIVE SIBLINGS: ALIVE SON(S): ALIVE DAUGHTER(S): ALIVE FATHER HAD AN MILLL3 GIRLS 1 BOY. SOCIAL HISTORY GENERAL: TOBACCO USE ARE YOU A:NONSMOKER RECREATIONAL DRUG USE DRUG USE?NO CAFFEINE CAFFEINE USE?NO MARITAL STATUS: . OTHERS AT HOME: SPOUSE, CHILDREN. JAIN: NO PREFEREN E. LANGUAGE: DIVEHI. PSYCHOLOGICAL HX TREATMENT PAIN CLINIC PFS, CLERGY, PUBLIC HEALTH REFERRALS CLERGY REFERRAL NEEDED?NO WAS THE PROVIDER NOTIFIED OF ANY PERTINENT INFO?NO PFS REFERRAL NEEDED?NO PUBLIC HEALTH REFERRAL NEEDED?NO PATIENT: ____. ADVANCED DIRECTIVES HEALTH CARE PROXY?NO POWER OF DOUGH MOLDER?NO HOSPITALIZATION/MAJOR DIAGNOSTIC PROCEDURE NO HOSPITALIZATION HISTORY. REVIEW OF SYSTEMS CONSTITUTIONAL: ANY CHANGE IN YOUR MEDICAL CONDITION? NO . CHILLS NO . FEVER NO . INFECTION: DO YOU HAVE NEW INFECTIONS? NO . DO YOU HAVE HISTORY OF MRSA? NO . MUSCULOSKELETAL: ANY NEW PATTERNS OF PAIN OR NUMBNESS? NO . SYTEMIC LUPUS NO . GASTROENTEROLOGY: ANY NEW CHANGE IN BOWEL CONTROL? NO . BARRETTS ESOPHAGUS NO . CIRRHOSIS NO . HEPATITIS NO . LIVER FAILURE NO . ACID REFLUX NO . UNEXPLAINED WEIGHT LOSS NO . GENITOURINARY: ANY NEW CHANGE IN BLADDER CONTROL? NO . IS THERE A CHANCE YOU COULD BE ? NO . HEMATOLOGY/LYMPH: DO YOU TAKE ANY BLOOD THINNERS? (FOR EXAMPLE- COUMADIN, PLAVIX, AGGRENOX, PLATEL, PRADAXA, OR XARELTO) NO . WHEN WAS YOUR LAST DOSE? DATE: TIME: . LOW PLATELET COUNT NO . SICKLE CELL DISEASE NO . VON WILLIEBRANDS NO . FACTOR V LEIDEN NO . THALLASEMIA NO . ANEMIA NO . EASY BRUISING NO . NEUROLOGY: HAVE YOU FALLEN IN THE PAST 6 MONTHS? NO . ANY NEW EXTREMITY NUMBNESS OR WEAKNESS? NO . HEAD INJURY NO . DEMENTIA NO . CEREBRAL PALSY NO . MULTIPLE SCLEROSIS NO . DIZZINESS NO . HEADACHE NO . STROKES NO . VERTIGO NO . CARDIOLOGY: DO YOU HAVE A PACEMAKER OR DEFIBRILLATOR? NO . ANGINA NO . HEART ATTACK NO . HEART SURGERY NO . CONGESTIVE HEART FAILURE/FLUID OVERLOAD NO . CHEST PAIN NO . HIGH BLOOD PRESSURE NO . IRREGULAR HEART BEAT NO . RESPIRATORY: HAVE YOU BEEN SICK IN THE PAST WEEK? NO . FEVER NO . FLU LIKE SYMPTOMS? NO . CPAP NO . BYPAP NO . ASTHMA NO . EMPHYSEMA NO . CHRONIC LUNG DISEASES NO . SHORTNESS OF BREATH ON EXERTION NO . DO YOU USE ANY TYPE OF TOBACCO (SMOKE, SMOKELESS, CHEW)? NO . COUGH NO . SNORING NO . INTEGUMENTARY: DO YOU HAVE ANY RASHES OR OPEN SORES? NO . ALLERGIC/IMMUNO: ARE YOU ALLERGIC TO SHELLFISH OR IV DYE? NO . ANY NEW ALLERGIES? NO . PSYCHIATRIC: DO YOU HAVE THOUGHTS OF HURTING YOURSELF OR SOMEONE ELSE? NO . ARE YOU ABUSED, NEGLECTED, OR IN AN UNSAFE ENVIRONMENT? NO . ENDOCRINOLOGY: ARE YOU DIABETIC? NO . THYROID DISORDER NO . OTHER: DO YOU NEED ANY PRESCRIPTIONS? NO . IF YES, PLEASE LIST: ____ . ANY NEW PROBLEMS WITH YOUR MEDICATIONS? NO . WHEN DID YOU LAST EAT? ____ . WHEN DID YOU LAST DRINK? ____ . WHAT DID YOU LAST DRINK? ____ . NAME OF PERSON DRIVING YOU HOME? ____ . DO YOU HAVE ANY OTHER QUESTIONS OR CONCERNS NO . REVIEWED BY: PROVIDER: EDUARD MALONE . VITAL SIGNS WT 230 LBS, HT 71", BMI 32.07 INDEX, BP 150/98 R ARM, REPEAT BP 157/105 L ARM, RR 75 /MIN, TEMP 98.7 F, OXYGEN SAT % 94, NA INITIALS TL 1140, REVIEWED BY: KG. EXAMINATION GENERAL EXAMINATION: GENERAL APPEARANCE:ALER/NO ACUTE DISTRESS. NECK:NEGATIVE FOR LYMPHADENOPATHY. CHEST:CLEAR/RESPIRATIONS NON LABORED. HEART:S1/S2 NL RATE /RHYTHM. ABDOMEN:SOFT AND NOT TENDER.WELL HEALED SURGICAL INCISION LEFT LOWER ABDOMINAL-NON TENDER.. ASSESSMENTS NEURALGIA - M79.2 (PRIMARY) TREATMENT NEURALGIA FEMORAL NERVE BLOCKEDUARD MORENO 08/08/2016 12:44:58 PM > LEFT LATERAL FEMORAL CUTANEOUS NERVE BLOCK REFERRAL TO:CHARANJIT RAGSDALEINFECTIOUS DISEASE REASON:REOCCURENT MRSA /CLEARANCE TO DO LEFT LATERAL FEMORAL CUTANEOUS NERVE BLOCK PROCEDURE CODES FA211 ESTABILISHED PATIENT [facility] CHARGE DISPOSITION & COMMUNICATION FOLLOW UP 6 WEEKS W (REASON: LEFT LAERAL FEMORAL CUTANEOUS NERVE BLOCK -DO NOT BOOK UNTIL WE RECIEVE CLEARANCE DR RAGSDALE) ELECTRONICALLY SIGNED BY FAISAL BRANCH ON 08/08/2016 AT 01:58 PM EST DISCLAIMER : THIS IS A VISIT SUMMARY EXTRACTED FROM THE [employer] CHART. IT IS NOT A COPY OF THE [employer] PROGRESS NOTE. STEFFD
== END ==
LOC: M PAIN 11:20
PROVIDERS: ATTEND Nurse Practitioner Family
DX: M79.2 Neuralgia and neuritis, unspecified (principal); Z79.899 Other long term (current) drug therapy; Z79.2 Long term (current) use of antibiotics; I10 Essential (primary) hypertension; Z86.14 Personal history of Methicillin resistant Staphylococcus aureus infection; F43.12 Post-traumatic stress disorder, chronic; G47.30 Sleep apnea, unspecified; Z09 Encounter for follow-up examination after completed treatment for conditions other than malignant neoplasm

== ENCOUNTER → 2016-10-02 | Outpatient (REF) | payer OTHER | LOC: M SFHCPLAZ 12:50 | PROVIDERS: ATTEND Internal Medicine Infectious Disease | DX: Z22.322 Carrier or suspected carrier of Methicillin resistant Staphylococcus aureus (principal) ==

== ENCOUNTER → 2016-10-15 | Outpatient (CLI) | payer OTHER ==
[~2016-10-15] MED LIST changes: +BUPIVACAINE HCL 0.25% 30 ML VIAL As Ordered ONE; +LIDOCAINE 1% SDV INJ 30 ML VIAL As Ordered ONE; +TRIAMCINOLONE ACETONIDE SUSP 40 MG/ML VIAL (J3301) As Ordered ONE; +diazePAM 5 MG TAB As Ordered ONE; +oxyCODONE 5MG TAB As Ordered ONE
--- NOTE | 2016-10-21 23:42 | ECWPNPC ---
PATIENT NAME: SERENA CAGE : 1975 GENDER: MALE VISIT DATE: 10/15/2016 DISCHARGE DATE: 10/15/16 1239 VISIT LOCKED DATE TIME: PHYSICIAN: RIN DIANE RESOURCE: RIN DIANE REASON FOR APPOINTMENT 1. FEMORAL CUTANEOUS NB HISTORY OF PRESENT ILLNESS HISTORY OF PRESENT ILLNESS: PAIN THE PATIENT DESCRIBES THE PAIN... FALL RISK SCREENING: SCREENING :NO FALLS IN THE PAST YEAR CURRENT MEDICATIONS TAKING CHLORTHALIDONE 12.5 12.5MG TABLET ORAL , NOTES: LAST ON 10/11/16 TAKING PRAZOSIN HCL 1 MG CAPSULE 3 CAPSULE AT BEDTIME ORALLY ONCE A DAY TOTAL OF 3 MG, NOTES: LAST Sat10/10/16 TAKING TELMISARTAN 80 MG TABLET 1 TABLET ORALLY ONCE A DAY, NOTES: LAST 10/11/16 TAKING BUPROPION HCL ER (XL) 300 MG TABLET EXTENDED RELEASE 24 HOUR 1 TABLET IN THE MORNING ORALLY DAILY, NOTES: LAST Sat10/10/16 TAKING NORTRIPTYLINE HCL 50 MG CAPSULE 1 CAPSULE AT BEDTIME ORALLY ONCE A DAY, NOTES: Sat10/10/16 TAKING LIDOCAINE HCL 2 % GEL 1 APPLICATION TO AFFECTED AREA NEEDED EXTERNALLY THREE TIMES A DAY TAKING ZALEPLON 5 MG CAPSULE 1 CAPSULE AT BEDTIME NEEDED ORALLY ONCE A DAY, NOTES: AWHILE AGO TAKING DULOXETINE HCL 20 MG CAPSULE DELAYED RELEASE PARTICLES 1 CAPSULE ORALLY TWICE A DAY, NOTES: Sat10/10/16 TAKING HIBICLENS 4 % LIQUID DIRECTED EXTERNALLY DAILY FOR 1 WEEK BEFORE PROCEDURE THEN QOD TAKING MUPIROCIN 2 % OINTMENT 1 APPLICATION TO AFFECTED AREA EXTERNALLY BID GROIN AXILLA NAILS AND NOSE MEDICATION LIST REVIEWED AND RECONCILED WITH THE PATIENT PAST MEDICAL HISTORY MRSA RECURRENT STATUS POST DRAINAGE OF LEFT GROIN 08/13/14 SINCE HAS HAD AT LEAST 4 MORE EPISODE LEFT FOREARM LEFT NOSTRIL HAS PRESCRIPTION OF BACTRIM FOR SELF TREATMENT, PTSD SLEEP APNEA HTN ALLERGIES N.K.D.A. REVIEW OF SYSTEMS CONSTITUTIONAL: ANY CHANGE IN YOUR MEDICAL CONDITION? NO . CHILLS NO . FEVER NO . INFECTION: DO YOU HAVE NEW INFECTIONS? NO . DO YOU HAVE HISTORY OF MRSA? YES, HX TO LEFT GROIN . MUSCULOSKELETAL: ANY NEW PATTERNS OF PAIN OR NUMBNESS? NO . GASTROENTEROLOGY: ANY NEW CHANGE IN BOWEL CONTROL? NO . GENITOURINARY: ANY NEW CHANGE IN BLADDER CONTROL? NO . IS THERE A CHANCE YOU COULD BE ? NO . HEMATOLOGY/LYMPH: DO YOU TAKE ANY BLOOD THINNERS? (FOR EXAMPLE- COUMADIN, PLAVIX, AGGRENOX, PLATEL, PRADAXA, OR XARELTO) NO . WHEN WAS YOUR LAST DOSE? DATE: TIME: . NEUROLOGY: HAVE YOU FALLEN IN THE PAST 6 MONTHS? NO . ANY NEW EXTREMITY NUMBNESS OR WEAKNESS? NO . CARDIOLOGY: DO YOU HAVE A PACEMAKER OR DEFIBRILLATOR? NO . RESPIRATORY: HAVE YOU BEEN SICK IN THE PAST WEEK? NO . FEVER NO . FLU LIKE SYMPTOMS? NO . COUGH NO . INTEGUMENTARY: DO YOU HAVE ANY RASHES OR OPEN SORES? NO . ALLERGIC/IMMUNO: ARE YOU ALLERGIC TO SHELLFISH OR IV DYE? NO . ANY NEW ALLERGIES? NO . PSYCHIATRIC: DO YOU HAVE THOUGHTS OF HURTING YOURSELF OR SOMEONE ELSE? NO . ARE YOU ABUSED, NEGLECTED, OR IN AN UNSAFE ENVIRONMENT? NO . ENDOCRINOLOGY: ARE YOU DIABETIC? NO . OTHER: DO YOU NEED ANY PRESCRIPTIONS? NO . IF YES, PLEASE LIST: ____ . ANY NEW PROBLEMS WITH YOUR MEDICATIONS? NO . WHEN DID YOU LAST EAT? 0830 PM . WHEN DID YOU LAST DRINK? 9PM . WHAT DID YOU LAST DRINK? LEMONADE . NAME OF PERSON DRIVING YOU HOME? SUSY . DO YOU HAVE ANY OTHER QUESTIONS OR CONCERNS NO . REVIEWED BY: PROVIDER: . VITAL SIGNS WT 235 LBS, HT 71", BMI 32.77 INDEX, BP 154/113 L ARM, REPEAT BP 148/100 R ARM, HR 76 /MIN, RR 18 /MIN, TEMP 98.1 F, OXYGEN SAT % 96%, NA INITIALS SC 10:29, REVIEWED BY: SONIAN IS AWARE OF BPDISCUSSED WITH NORBERTO DYER. 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 THE PAIN IS FOLLOWING THE DISTRIBUTION OF THE LATERAL FEMORAL CUTANEOUS NERVE. I DISCUSSED ALTERNATIVES WITH THE PATIENT AND WE BOTH AGREE ON BLOCKING THE NERVE LOOKING FOR LONG-LASTING PAIN RELIEF. I EVALUATE THE PATIENT AND REVIEWED THE CHART. I WENT THROUGH THE RISKS ALTERNATIVES AND BENEFITS ASSOCIATED WITH THIS PROCEDURE. THE PATIENT EXPRESSED WANTS TO PROCEED. THE PATIENT DENIES UNEXPLAINABLE WEIGHT LOSS FEVER CHILLS NEW CHANGES IN THE URINARY OR BOWEL CONTROL.PROCEDURE NOTE: CONSENT WAS REVIEWED WITH THE PATIENT. PATIENT WAS BROUGHT TO THE PROCEDURE ROOM AND PLACED IN THE SUPINE POSITION. THE LEFT INGUINAL AREA WAS CLEAN WITH CHLORA-PREP SOLUTION AND DRAPED ASEPTICALLY. PROCEDURE WAS DONE UNDER STANDARD STERILE CONDITIONS. TARGET WAS SELECTED 2 CM MEDIAL AND 2 CM INFERIOR TO THE ANTERIOR SUPERIOR ILIAC SPINE. A NERVE STIMULATOR WAS USED FIRST AT 3.0 VOLTS AND REDUCED SLOWLY FOLLOWING THE PATIENT FEEDBACK TO 0.6 VOLTS. WHEN PROPER STIMULATION OF THE NERVE WAS REACHED BUPIVACAINE 0.125%, 15 ML WITH KENALOG 10 MGS WAS INJECTED. THERE WAS NO EVIDENCE OF BLOOD, PARESTHESIA OR VISCERAL PUNCTURE. PATIENT WAS SENT TO THE RECOVERY ROOM. THERE WERE NO COMPLICATIONS.POST-PROCEDURE NOTE: I DISCUSSED ALTERNATIVES WITH THE PATIENT. PATIENT IS GOING TO BE SEEN IN A FOLLOW-UP. I AM LOOKING FOR LONG-LASTING PAIN IS WITH THIS INTERVENTION. INSTRUCTIONS WERE GIVING, QUESTIONS WERE ANSWERED, AND THE PATIENT REPORTS UNDERSTANDING AND AGREES WITH THE PLAN.I, IRASEMA MARTÍNEZ, DOCUMENTED THE ABOVE INFORMATION ACTING A SCRIBE FOR DR. DIANE. I HAVE REVIEWED THE ABOVE DOCUMENT, WRITTEN BY IRASEMA JARRETT AND I VERIFY THAT IT IS ACCURATE. PROCEDURE CODES 76917 N BLOCK OTHER PERIPHERAL DISPOSITION & COMMUNICATION FOLLOW UP 3 WEEKS ELECTRONICALLY SIGNED BY RIN DIANE MD ON 10/21/2016 AT 01:13 PM EDT DISCLAIMER : THIS IS A VISIT SUMMARY EXTRACTED FROM THE [employer] CHART. IT IS NOT A COPY OF THE [employer] PROGRESS NOTE. RUFINA
== END ==
LOC: M PAIN 10:20
PROVIDERS: ATTEND Anesthesiology
DX: G89.29 Other chronic pain (principal); G57.11 Meralgia paresthetica, right lower limb; Z22.322 Carrier or suspected carrier of Methicillin resistant Staphylococcus aureus; F43.10 Post-traumatic stress disorder, unspecified; G47.30 Sleep apnea, unspecified; I10 Essential (primary) hypertension; Z79.899 Other long term (current) drug therapy
CPT/HCPCS: 64450; J3301

== ENCOUNTER → 2016-11-06 | Outpatient (CLI) | payer OTHER ==
[~2016-11-06] MED LIST changes: -BUPIVACAINE HCL 0.25% 30 ML VIAL As Ordered ONE; -LIDOCAINE 1% SDV INJ 30 ML VIAL As Ordered ONE; -TRIAMCINOLONE ACETONIDE SUSP 40 MG/ML VIAL (J3301) As Ordered ONE; -diazePAM 5 MG TAB As Ordered ONE; -oxyCODONE 5MG TAB As Ordered ONE
--- NOTE | 2016-11-07 00:56 | ECWPNPC ---
PATIENT NAME: SERENA CAGE : 1975 GENDER: MALE VISIT DATE: 11/06/2016 DISCHARGE DATE: 11/06/16 0943 VISIT LOCKED DATE TIME: PHYSICIAN: EDUARD MORENO RESOURCE: EDUARD MORENO REASON FOR APPOINTMENT 1. POST INJEC HISTORY OF PRESENT ILLNESS HISTORY OF PRESENT ILLNESS: HERE FOR POST PROCEDURE F/U.HAD LEFT LATERAL FEMORAL CUTANEOUS BLOCK ON 10-15-16.PAIN DIARY IS REVIEWED.THIS IS SHOWING >75% IMPROVEMENT POST PROCEDURE FOR >2WEEKS.RATING PAIN VAS 3/10.DESCRIBES INTERMITTENT STABING PAIN LEFT ANTERIOR THIGH.DISCUSSED TREATMENT OPTIONS. PAIN THE PATIENT DESCRIBES THE PAIN... FALL RISK SCREENING: SCREENING :NO FALLS IN THE PAST YEAR CURRENT MEDICATIONS TAKING CHLORTHALIDONE 12.5 12.5MG TABLET ORAL , NOTES: LAST ON 10/11/16 TAKING PRAZOSIN HCL 1 MG CAPSULE 3 CAPSULE AT BEDTIME ORALLY ONCE A DAY TOTAL OF 3 MG, NOTES: LAST Sat10/10/16 TAKING TELMISARTAN 80 MG TABLET 1 TABLET ORALLY ONCE A DAY, NOTES: LAST 10/11/16 TAKING BUPROPION HCL ER (XL) 300 MG TABLET EXTENDED RELEASE 24 HOUR 1 TABLET IN THE MORNING ORALLY DAILY, NOTES: LAST Sat10/10/16 TAKING LIDOCAINE HCL 2 % GEL 1 APPLICATION TO AFFECTED AREA NEEDED EXTERNALLY THREE TIMES A DAY TAKING ZALEPLON 5 MG CAPSULE 1 CAPSULE AT BEDTIME NEEDED ORALLY ONCE A DAY, NOTES: AWHILE AGO TAKING HIBICLENS 4 % LIQUID DIRECTED EXTERNALLY DAILY FOR 1 WEEK BEFORE PROCEDURE THEN QOD TAKING MUPIROCIN 2 % OINTMENT 1 APPLICATION TO AFFECTED AREA EXTERNALLY BID GROIN AXILLA NAILS AND NOSE NOT-TAKING NORTRIPTYLINE HCL 50 MG CAPSULE 1 CAPSULE AT BEDTIME ORALLY ONCE A DAY, NOTES: Sat10/10/16 NOT-TAKING DULOXETINE HCL 20 MG CAPSULE DELAYED RELEASE PARTICLES 1 CAPSULE ORALLY TWICE A DAY, NOTES: Sat10/10/16 MEDICATION LIST REVIEWED AND RECONCILED WITH THE PATIENT PAST MEDICAL HISTORY MRSA RECURRENT STATUS POST DRAINAGE OF LEFT GROIN 08/13/14 SINCE HAS HAD AT LEAST 4 MORE EPISODE LEFT FOREARM LEFT NOSTRIL HAS PRESCRIPTION OF BACTRIM FOR SELF TREATMENT, PTSD SLEEP APNEA HTN ALLERGIES N.K.D.A. SURGICAL HISTORY RT SHOULDER [address]QU[address] AREA [address] CALVIN 2015 WISDOM 1997 LYMPHNODE 1980 HOSPITALIZATION/MAJOR DIAGNOSTIC PROCEDURE SURGICAL RELATED REVIEW OF SYSTEMS CONSTITUTIONAL: ANY CHANGE IN YOUR MEDICAL CONDITION? NO . CHILLS NO . FEVER NO . INFECTION: DO YOU HAVE NEW INFECTIONS? YES, CHRONIC MRSA, N/V/D OVER WEEKEND, PT STATES HE IS ALL BETTER NOW . DO YOU HAVE HISTORY OF MRSA? NO . MUSCULOSKELETAL: ANY NEW PATTERNS OF PAIN OR NUMBNESS? YES, PT STATES L THIGH PAIN BASELINE 3/10 WITH INTERMITTENT INCREASES OF 10/10 LASTING ABOUT 10 SECONDS. PT STATES PAIN STOPS HIM IN HIS TRACKS, THEN PAIN COMES DOWN TO BASELINE ON ITS OWN. . GASTROENTEROLOGY: ANY NEW CHANGE IN BOWEL CONTROL? YES, DIARRHEA OVER WEEKEND . GENITOURINARY: ANY NEW CHANGE IN BLADDER CONTROL? NO . IS THERE A CHANCE YOU COULD BE ? NO . HEMATOLOGY/LYMPH: DO YOU TAKE ANY BLOOD THINNERS? (FOR EXAMPLE- COUMADIN, PLAVIX, AGGRENOX, PLATEL, PRADAXA, OR XARELTO) NO . WHEN WAS YOUR LAST DOSE? DATE: TIME: . NEUROLOGY: HAVE YOU FALLEN IN THE PAST 6 MONTHS? NO . ANY NEW EXTREMITY NUMBNESS OR WEAKNESS? NO . CARDIOLOGY: DO YOU HAVE A PACEMAKER OR DEFIBRILLATOR? NO . RESPIRATORY: HAVE YOU BEEN SICK IN THE PAST WEEK? NO . FEVER NO . FLU LIKE SYMPTOMS? NO . COUGH NO . INTEGUMENTARY: DO YOU HAVE ANY RASHES OR OPEN SORES? NO . ALLERGIC/IMMUNO: ARE YOU ALLERGIC TO SHELLFISH OR IV DYE? NO . ANY NEW ALLERGIES? NO . PSYCHIATRIC: DO YOU HAVE THOUGHTS OF HURTING YOURSELF OR SOMEONE ELSE? NO . ARE YOU ABUSED, NEGLECTED, OR IN AN UNSAFE ENVIRONMENT? NO . ENDOCRINOLOGY: ARE YOU DIABETIC? NO . OTHER: DO YOU NEED ANY PRESCRIPTIONS? NO . IF YES, PLEASE LIST: ____ . ANY NEW PROBLEMS WITH YOUR MEDICATIONS? NO . WHEN DID YOU LAST EAT? ____ . WHEN DID YOU LAST DRINK? ____ . WHAT DID YOU LAST DRINK? ____ . NAME OF PERSON DRIVING YOU HOME? ____ . DO YOU HAVE ANY OTHER QUESTIONS OR CONCERNS NO . REVIEWED BY: PROVIDER: EDUARD MALONE . VITAL SIGNS WT 240.8 LBS, HT 71", BMI 33.58 INDEX, BP 146/101 MM HG, HR 63 /MIN, RR 16 /MIN, TEMP 98.0 F, OXYGEN SAT % 94%, SAFE IN ENV? (Y/N) Y, NA INITIALS TL 0902, REVIEWED BY: EM. EXAMINATION GENERAL EXAMINATION: GENERAL APPEARANCE:ALER/NO ACUTE DISTRESS. NECK:NEGATIVE FOR LYMPHADENOPATHY. CHEST:CLEAR/RESPIRATIONS NON LABORED. HEART:S1/S2 NL RATE /RHYTHM. ABDOMEN:SOFT AND NOT TENDER.WELL HEALED SURGICAL INCISION LEFT LOWER ABDOMINAL-NON TENDER.. ASSESSMENTS NEURALGIA - M79.2 (PRIMARY) MERALGIA PARAESTHETICA, LEFT - G57.12 TREATMENT NEURALGIA NOTES: REQUEST LEFT LATERAL FEMORAL CUTANEOUS BLOCK FROM INSURANCE. PROCEDURE CODES FA211 ESTABILISHED PATIENT [facility] CHARGE DISPOSITION & COMMUNICATION FOLLOW UP 2WK POST (REASON: REQUEST LEFT LATERAL FEMORAL CUTANEOUS BLOCK FROM INSURANCE) ELECTRONICALLY SIGNED BY FAISAL BRANCH ON 11/06/2016 AT 04:36 PM EDT DISCLAIMER : THIS IS A VISIT SUMMARY EXTRACTED FROM THE [employer] CHART. IT IS NOT A COPY OF THE [employer] PROGRESS NOTE. RUFINA
== END ==
LOC: M PAIN 09:00
PROVIDERS: ATTEND Nurse Practitioner Family
DX: M79.2 Neuralgia and neuritis, unspecified (principal); Z79.899 Other long term (current) drug therapy

== ENCOUNTER → 2016-11-12 | Outpatient (CLI) | payer OTHER ==
[~2016-11-12] MED LIST changes: +BUPIVACAINE HCL 0.25% 30 ML VIAL As Ordered ONE; +ISOVUE-M 300 61% 15ML VIAL (Q9967) As Ordered ONE; +LIDOCAINE 1% SDV INJ 30 ML VIAL As Ordered ONE; +TRIAMCINOLONE ACETONIDE SUSP 40 MG/ML VIAL (J3301) As Ordered ONE; +diazePAM 5 MG TAB As Ordered ONE; +oxyCODONE 5MG TAB As Ordered ONE
--- NOTE | 2016-11-18 23:29 | ECWPNPC ---
PATIENT NAME: SERNEA CAGE : 1975 GENDER: MALE VISIT DATE: 11/12/2016 DISCHARGE DATE: 11/12/16 1057 VISIT LOCKED DATE TIME: PHYSICIAN: RIN DIANE RESOURCE: RIN DIANE REASON FOR APPOINTMENT 1. LATERAL FEMORAL CUTANEOUS NERVE BLOCK HISTORY OF PRESENT ILLNESS HISTORY OF PRESENT ILLNESS: PAIN THE PATIENT DESCRIBES THE PAIN... FALL RISK SCREENING: SCREENING :NO FALLS IN THE PAST YEAR CURRENT MEDICATIONS TAKING CHLORTHALIDONE 12.5 12.5MG TABLET ORAL , NOTES: 11/12/16744 TAKING PRAZOSIN HCL 1 MG CAPSULE 3 CAPSULE AT BEDTIME ORALLY ONCE A DAY TOTAL OF 3 MG, NOTES: 11/09/16 TAKING TELMISARTAN 80 MG TABLET 1 TABLET ORALLY ONCE A DAY, NOTES: 11/11/162129 TAKING BUPROPION HCL ER (XL) 300 MG TABLET EXTENDED RELEASE 24 HOUR 1 TABLET IN THE MORNING ORALLY DAILY, NOTES: 11/11/162129 TAKING LIDOCAINE HCL 2 % GEL 1 APPLICATION TO AFFECTED AREA NEEDED EXTERNALLY THREE TIMES A DAY, NOTES: NONE RECENT TAKING ZALEPLON 5 MG CAPSULE 1 CAPSULE AT BEDTIME NEEDED ORALLY ONCE A DAY, NOTES: NONE RECENT TAKING HIBICLENS 4 % LIQUID DIRECTED EXTERNALLY DAILY FOR 1 WEEK BEFORE PROCEDURE THEN QOD, NOTES: 11/12/16644 TAKING MUPIROCIN 2 % OINTMENT 1 APPLICATION TO AFFECTED AREA EXTERNALLY BID GROIN AXILLA NAILS AND NOSE, NOTES: 11/12/16644 NOT-TAKING NORTRIPTYLINE HCL 50 MG CAPSULE 1 CAPSULE AT BEDTIME ORALLY ONCE A DAY, NOTES: Sat10/10/16 NOT-TAKING DULOXETINE HCL 20 MG CAPSULE DELAYED RELEASE PARTICLES 1 CAPSULE ORALLY TWICE A DAY, NOTES: Sat10/10/16 MEDICATION LIST REVIEWED AND RECONCILED WITH THE PATIENT PAST MEDICAL HISTORY MRSA RECURRENT STATUS POST DRAINAGE OF LEFT GROIN 08/13/14 SINCE HAS HAD AT LEAST 4 MORE EPISODE LEFT FOREARM LEFT NOSTRIL HAS PRESCRIPTION OF BACTRIM FOR SELF TREATMENT, PTSD SLEEP APNEA HTN ALLERGIES N.K.D.A. REVIEW OF SYSTEMS CONSTITUTIONAL: ANY CHANGE IN YOUR MEDICAL CONDITION? NO . CHILLS NO . FEVER NO . INFECTION: DO YOU HAVE NEW INFECTIONS? NO . DO YOU HAVE HISTORY OF MRSA? NO . MUSCULOSKELETAL: ANY NEW PATTERNS OF PAIN OR NUMBNESS? YES, STABBING PAIN LEFT THIGH . GASTROENTEROLOGY: ANY NEW CHANGE IN BOWEL CONTROL? NO . GENITOURINARY: ANY NEW CHANGE IN BLADDER CONTROL? NO . IS THERE A CHANCE YOU COULD BE ? NO . HEMATOLOGY/LYMPH: DO YOU TAKE ANY BLOOD THINNERS? (FOR EXAMPLE- COUMADIN, PLAVIX, AGGRENOX, PLATEL, PRADAXA, OR XARELTO) NO . WHEN WAS YOUR LAST DOSE? DATE: TIME: . NEUROLOGY: HAVE YOU FALLEN IN THE PAST 6 MONTHS? NO . ANY NEW EXTREMITY NUMBNESS OR WEAKNESS? NO . CARDIOLOGY: DO YOU HAVE A PACEMAKER OR DEFIBRILLATOR? NO . RESPIRATORY: HAVE YOU BEEN SICK IN THE PAST WEEK? NO . FEVER NO . FLU LIKE SYMPTOMS? NO . COUGH NO . INTEGUMENTARY: DO YOU HAVE ANY RASHES OR OPEN SORES? NO . ALLERGIC/IMMUNO: ARE YOU ALLERGIC TO SHELLFISH OR IV DYE? NO . ANY NEW ALLERGIES? NO . PSYCHIATRIC: DO YOU HAVE THOUGHTS OF HURTING YOURSELF OR SOMEONE ELSE? NO . ARE YOU ABUSED, NEGLECTED, OR IN AN UNSAFE ENVIRONMENT? NO . ENDOCRINOLOGY: ARE YOU DIABETIC? NO . OTHER: DO YOU NEED ANY PRESCRIPTIONS? NO . IF YES, PLEASE LIST: ____ . ANY NEW PROBLEMS WITH YOUR MEDICATIONS? NO . WHEN DID YOU LAST EAT? 11/11/16 1800 . WHEN DID YOU LAST DRINK? 11/12/16 0745 . WHAT DID YOU LAST DRINK? SIP OF WATER WITH MEDS . NAME OF PERSON DRIVING YOU HOME? SUSY . DO YOU HAVE ANY OTHER QUESTIONS OR CONCERNS NO . REVIEWED BY: PROVIDER: . VITAL SIGNS WT 240.8 LBS, HT 71", BMI 33.58 INDEX, BP 129/92 MM HG, HR 73 /MIN, RR 16 /MIN, TEMP 97.5 F, OXYGEN SAT % 94%, NA INITIALS SC 09:04. ASSESSMENTS MERALGIA PARESTHETICA OF LEFT SIDE - G57.12 (PRIMARY) PROCEDURES PRE-PROCEDURE DIAGNOSIS: MERALGIA PARESTHETICAPOST-PROCEDURE DIAGNOSIS: MERALGIA PARESTHETICAPROCEDURE: LEFT LATERAL FEMORAL CUTANEOUS NERVE BLOCKSURGEON: RIN DIANE MDANESTHESIA: LOCALCOMPLICATIONS: NONEPRE-PROCEDURE NOTE: THE PATIENT HAS HISTORY OF PAIN AT THE LATERAL ASPECT OF THE THIGH. THE PAIN IS FOLLOWING THE DISTRIBUTION OF THE LATERAL FEMORAL CUTANEOUS NERVE. I DISCUSSED ALTERNATIVES WITH THE PATIENT AND WE BOTH AGREE ON BLOCKING THE NERVE LOOKING FOR LONG-LASTING PAIN RELIEF. I EVALUATE THE PATIENT AND REVIEWED THE CHART. I WENT THROUGH THE RISKS ALTERNATIVES AND BENEFITS ASSOCIATED WITH THIS PROCEDURE. THE PATIENT EXPRESSED WANTS TO PROCEED. THE PATIENT DENIES UNEXPLAINABLE WEIGHT LOSS FEVER CHILLS NEW CHANGES IN THE URINARY OR BOWEL CONTROL.PROCEDURE NOTE: CONSENT WAS REVIEWED WITH THE PATIENT. PATIENT WAS BROUGHT TO THE PROCEDURE ROOM AND PLACED IN THE SUPINE POSITION. THE LEFT INGUINAL AREA WAS CLEAN WITH CHLORA-PREP SOLUTION AND DRAPED ASEPTICALLY. PROCEDURE WAS DONE UNDER STANDARD STERILE CONDITIONS. TARGET WAS SELECTED 2 CM MEDIAL AND 2 CM INFERIOR TO THE ANTERIOR SUPERIOR ILIAC SPINE. A NERVE STIMULATOR WAS USED FIRST AT 3.0 VOLTS AND REDUCED SLOWLY FOLLOWING THE PATIENT FEEDBACK TO 0.6 VOLTS. WHEN PROPER STIMULATION OF THE NERVE WAS REACHED BUPIVACAINE 0.125%, 15 ML WITH KENALOG 10 MGS WAS INJECTED. THERE WAS NO EVIDENCE OF BLOOD, PARESTHESIA OR VISCERAL PUNCTURE. PATIENT WAS SENT TO THE RECOVERY ROOM. THERE WERE NO COMPLICATIONS.POST-PROCEDURE NOTE: I DISCUSSED ALTERNATIVES WITH THE PATIENT. PATIENT IS GOING TO BE SEEN IN A FOLLOW-UP. I AM LOOKING FOR LONG-LASTING PAIN IS WITH THIS INTERVENTION. INSTRUCTIONS WERE GIVING, QUESTIONS WERE ANSWERED, AND THE PATIENT REPORTS UNDERSTANDING AND AGREES WITH THE PLAN. DIAGNOSTIC IMAGING [facility] FLUORO GUIDANCE (PAIN)[id number] DISPOSITION & COMMUNICATION FOLLOW UP 3 WEEKS ELECTRONICALLY SIGNED BY RIN DIANE MD ON 11/18/2016 AT 07:42 PM EDT DISCLAIMER : THIS IS A VISIT SUMMARY EXTRACTED FROM THE [employer] CHART. IT IS NOT A COPY OF THE [employer] PROGRESS NOTE. RUFINA
== END ==
LOC: M PAIN 08:40
PROVIDERS: ATTEND Anesthesiology
DX: G89.29 Other chronic pain (principal); G57.12 Meralgia paresthetica, left lower limb; Z22.322 Carrier or suspected carrier of Methicillin resistant Staphylococcus aureus; Z79.899 Other long term (current) drug therapy
CPT/HCPCS: 64450; J3301; Q9967

== ENCOUNTER → 2016-12-03 | Outpatient (CLI) | payer OTHER ==
[~2016-12-03] MED LIST changes: -BUPIVACAINE HCL 0.25% 30 ML VIAL As Ordered ONE; -ISOVUE-M 300 61% 15ML VIAL (Q9967) As Ordered ONE; -LIDOCAINE 1% SDV INJ 30 ML VIAL As Ordered ONE; +TRAZ50TA11 PO; -TRAZ50TA4 PO; -TRIAMCINOLONE ACETONIDE SUSP 40 MG/ML VIAL (J3301) As Ordered ONE; -diazePAM 5 MG TAB As Ordered ONE; -oxyCODONE 5MG TAB As Ordered ONE
--- NOTE | 2016-12-04 01:44 | ECWPNPC ---
PATIENT NAME: SERENA CAGE : 1975 GENDER: MALE VISIT DATE: 12/03/2016 DISCHARGE DATE: 12/03/16 1019 VISIT LOCKED DATE TIME: PHYSICIAN: EDUARD MORENO RESOURCE: EDUARD MORENO REASON FOR APPOINTMENT 1. POST PROC HISTORY OF PRESENT ILLNESS HISTORY OF PRESENT ILLNESS: HERE FOR POST PROCEDURE F/U.HAD LEFT LATERAL FEMORAL CUTANEOUS BLOCK ON 11-12-16.PAIN DIARY IS REVIEWED.THIS IS SHOWING >75% IMPROVEMENT POST PROCEDURE FOR >2WEEKS.RATING PAIN VAS 2/10.STATES INTERMITTENT STABING PAIN LEFT ANTERIOR THIGH MUCH LESS FREQUENT SINCE PROCEDURE.DISCUSSED TREATMENT OPTIONS.HE FEELS HE DOESNT NEED ANOTHER INJECTION AT THIS TIME. PAIN THE PATIENT DESCRIBES THE PAIN... THE PATIENT DESCRIBES THE PAIN... FALL RISK SCREENING: SCREENING :NO FALLS IN THE PAST YEAR CURRENT MEDICATIONS TAKING CHLORTHALIDONE 12.5 12.5MG TABLET ORAL TAKING PRAZOSIN HCL 1 MG CAPSULE 3 CAPSULE AT BEDTIME ORALLY ONCE A DAY TOTAL OF 3 MG TAKING TELMISARTAN 80 MG TABLET 1 TABLET ORALLY ONCE A DAY TAKING BUPROPION HCL ER (XL) 300 MG TABLET EXTENDED RELEASE 24 HOUR 1 TABLET IN THE MORNING ORALLY DAILY TAKING LIDOCAINE HCL 2 % GEL 1 APPLICATION TO AFFECTED AREA NEEDED EXTERNALLY THREE TIMES A DAY TAKING ZALEPLON 5 MG CAPSULE 1 CAPSULE AT BEDTIME NEEDED ORALLY ONCE A DAY TAKING HIBICLENS 4 % LIQUID DIRECTED EXTERNALLY DAILY FOR 1 WEEK BEFORE PROCEDURE THEN QOD TAKING MUPIROCIN 2 % OINTMENT 1 APPLICATION TO AFFECTED AREA EXTERNALLY BID GROIN AXILLA NAILS AND NOSE NOT-TAKING NORTRIPTYLINE HCL 50 MG CAPSULE 1 CAPSULE AT BEDTIME ORALLY ONCE A DAY, NOTES: Sat10/10/16 NOT-TAKING DULOXETINE HCL 20 MG CAPSULE DELAYED RELEASE PARTICLES 1 CAPSULE ORALLY TWICE A DAY, NOTES: Sat10/10/16 MEDICATION LIST REVIEWED AND RECONCILED WITH THE PATIENT PAST MEDICAL HISTORY MRSA RECURRENT STATUS POST DRAINAGE OF LEFT GROIN 08/13/14 SINCE HAS HAD AT LEAST 4 MORE EPISODE LEFT FOREARM LEFT NOSTRIL HAS PRESCRIPTION OF BACTRIM FOR SELF TREATMENT, PTSD SLEEP APNEA HTN ALLERGIES N.K.D.A. 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 CONSTITUTIONAL: ANY CHANGE IN YOUR MEDICAL CONDITION? NO . CHILLS NO . FEVER NO . INFECTION: DO YOU HAVE NEW INFECTIONS? NO . DO YOU HAVE HISTORY OF MRSA? NO . MUSCULOSKELETAL: ANY NEW PATTERNS OF PAIN OR NUMBNESS? NO . GASTROENTEROLOGY: ANY NEW CHANGE IN BOWEL CONTROL? NO . GENITOURINARY: ANY NEW CHANGE IN BLADDER CONTROL? NO . IS THERE A CHANCE YOU COULD BE ? NO . HEMATOLOGY/LYMPH: DO YOU TAKE ANY BLOOD THINNERS? (FOR EXAMPLE- COUMADIN, PLAVIX, AGGRENOX, PLATEL, PRADAXA, OR XARELTO) NO . WHEN WAS YOUR LAST DOSE? DATE: TIME: . NEUROLOGY: HAVE YOU FALLEN IN THE PAST 6 MONTHS? NO . ANY NEW EXTREMITY NUMBNESS OR WEAKNESS? NO . CARDIOLOGY: DO YOU HAVE A PACEMAKER OR DEFIBRILLATOR? NO . RESPIRATORY: HAVE YOU BEEN SICK IN THE PAST WEEK? NO . FEVER NO . FLU LIKE SYMPTOMS? NO . COUGH NO . INTEGUMENTARY: DO YOU HAVE ANY RASHES OR OPEN SORES? NO . ALLERGIC/IMMUNO: ARE YOU ALLERGIC TO SHELLFISH OR IV DYE? NO . ANY NEW ALLERGIES? NO . PSYCHIATRIC: DO YOU HAVE THOUGHTS OF HURTING YOURSELF OR SOMEONE ELSE? NO . ARE YOU ABUSED, NEGLECTED, OR IN AN UNSAFE ENVIRONMENT? NO . ENDOCRINOLOGY: ARE YOU DIABETIC? NO . OTHER: DO YOU NEED ANY PRESCRIPTIONS? NO . IF YES, PLEASE LIST: ____ . ANY NEW PROBLEMS WITH YOUR MEDICATIONS? NO . WHEN DID YOU LAST EAT? ____ . WHEN DID YOU LAST DRINK? ____ . WHAT DID YOU LAST DRINK? ____ . NAME OF PERSON DRIVING YOU HOME? ____ . DO YOU HAVE ANY OTHER QUESTIONS OR CONCERNS NO . VITAL SIGNS WT 231 LBS, HT 71", BMI 32.21 INDEX, BP 139/87 MM HG, HR 77 /MIN, RR 16 /MIN, TEMP 98.2 F, OXYGEN SAT % 98, SAFE IN ENV? (Y/N) Y, REVIEWED BY: EM. EXAMINATION GENERAL EXAMINATION: GENERAL APPEARANCE:ALERT ,ORIENTED.NO ACUTE DISTRESS. LUNGS:LUNG THOMAS ARE CLEAR TO AUSCULTATION BILATERALLY. GOOD MOVEMENT OF AIR. HEART:S1, S2 IN A REGULAR RATE AND RHYTHM. NO SIGNIFICANT MURMURS, RUBS OR GALLOPS NOTED. 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 IT IS NOT A COPY OF THE [employer] PROGRESS NOTE. RUFINA
== END ==
LOC: M PAIN 09:40
PROVIDERS: ATTEND Nurse Practitioner Family
DX: G89.29 Other chronic pain (principal); G57.12 Meralgia paresthetica, left lower limb; F43.10 Post-traumatic stress disorder, unspecified; G47.30 Sleep apnea, unspecified; I10 Essential (primary) hypertension; Z86.14 Personal history of Methicillin resistant Staphylococcus aureus infection; Z79.899 Other long term (current) drug therapy

== ENCOUNTER → 2017-02-12 | Outpatient (CLI) | payer OTHER ==
--- NOTE | 2017-02-14 01:33 | ECWPNPC ---
PATIENT NAME: SERENA CAGE : 1975 GENDER: MALE VISIT DATE: 02/12/2017 DISCHARGE DATE: 02/12/17 1228 VISIT LOCKED DATE TIME: PHYSICIAN: EDUARD MORENO RESOURCE: EDUARD MORENO REASON FOR APPOINTMENT 1. LEFT TIGH HISTORY OF PRESENT ILLNESS HISTORY OF PRESENT ILLNESS: HERE FOR F/U.HAD LEFT LATERAL FEMORAL CUTANEOUS BLOCK ON 11-12-16 AND REPORTED RESOLUTION OF LEFT THIGH STABBING PAIN BUT CONTINUES WITH BURNING PAIN.PAIN DIARY IS REVIEWED.THIS IS SHOWING >75% IMPROVEMENT POST PROCEDURE FOR >2WEEKS.RATING PAIN VAS 4/10.DISCUSSED MEDICATION AND TREATMENT OPTIONS.HAS TRIELED GABAPENTIN WHICH CAUSED MEMORY SIDE EFFECTS.DULOXETINE AND NORTRIPTYLINE WERE INEFFECTIVE. PAIN THE PATIENT DESCRIBES THE PAIN... THE PATIENT DESCRIBES THE PAIN... THE PATIENT DESCRIBES THE PAIN... FALL RISK SCREENING: SCREENING :NO FALLS IN THE PAST YEAR CURRENT MEDICATIONS TAKING CHLORTHALIDONE 12.5 12.5MG TABLET ORAL TAKING PRAZOSIN HCL 1 MG CAPSULE 3 CAPSULE AT BEDTIME ORALLY ONCE A DAY TOTAL OF 3 MG TAKING TELMISARTAN 80 MG TABLET 1 TABLET ORALLY ONCE A DAY TAKING BUPROPION HCL ER (XL) 300 MG TABLET EXTENDED RELEASE 24 HOUR 1 TABLET IN THE MORNING ORALLY DAILY TAKING LIDOCAINE HCL 2 % GEL 1 APPLICATION TO AFFECTED AREA NEEDED EXTERNALLY THREE TIMES A DAY TAKING ZALEPLON 5 MG CAPSULE 1 CAPSULE AT BEDTIME NEEDED ORALLY ONCE A DAY NOT-TAKING HIBICLENS 4 % LIQUID DIRECTED EXTERNALLY DAILY FOR 1 WEEK BEFORE PROCEDURE THEN QOD NOT-TAKING MUPIROCIN 2 % OINTMENT 1 APPLICATION TO AFFECTED AREA EXTERNALLY BID GROIN AXILLA NAILS AND NOSE NOT-TAKING NORTRIPTYLINE HCL 50 MG CAPSULE 1 CAPSULE AT BEDTIME ORALLY ONCE A DAY, NOTES: Sat10/10/16 NOT-TAKING DULOXETINE HCL 20 MG CAPSULE DELAYED RELEASE PARTICLES 1 CAPSULE ORALLY TWICE A DAY, NOTES: Sat10/10/16 MEDICATION LIST REVIEWED AND RECONCILED WITH THE PATIENT PAST MEDICAL HISTORY MRSA RECURRENT STATUS POST DRAINAGE OF LEFT GROIN 08/13/14 SINCE HAS HAD AT LEAST 4 MORE EPISODE LEFT FOREARM LEFT NOSTRIL HAS PRESCRIPTION OF BACTRIM FOR SELF TREATMENT, PTSD SLEEP APNEA HTN REVIEW OF SYSTEMS REVIEWED BY: PROVIDER: EDUARD MORENO TRANSFORMER MOLDER . CONSTITUTIONAL: ANY CHANGE IN YOUR MEDICAL CONDITION? NO . CHILLS NO . FEVER NO . INFECTION: DO YOU HAVE NEW INFECTIONS? NO . DO YOU HAVE HISTORY OF MRSA? NO . MUSCULOSKELETAL: ANY NEW PATTERNS OF PAIN OR NUMBNESS? YES INCREASE CONTINUEORS BURNING IN UPPER LEFT LEG.. . GASTROENTEROLOGY: ANY NEW CHANGE IN BOWEL CONTROL? NO . GENITOURINARY: ANY NEW CHANGE IN BLADDER CONTROL? NO . IS THERE A CHANCE YOU COULD BE ? NO . HEMATOLOGY/LYMPH: DO YOU TAKE ANY BLOOD THINNERS? (FOR EXAMPLE- COUMADIN, PLAVIX, AGGRENOX, PLATEL, PRADAXA, OR XARELTO) NO . WHEN WAS YOUR LAST DOSE? DATE: TIME: . NEUROLOGY: HAVE YOU FALLEN IN THE PAST 6 MONTHS? NO . ANY NEW EXTREMITY NUMBNESS OR WEAKNESS? NO . CARDIOLOGY: DO YOU HAVE A PACEMAKER OR DEFIBRILLATOR? NO . RESPIRATORY: HAVE YOU BEEN SICK IN THE PAST WEEK? NO . FEVER NO . FLU LIKE SYMPTOMS? NO . COUGH NO . INTEGUMENTARY: DO YOU HAVE ANY RASHES OR OPEN SORES? NO . ALLERGIC/IMMUNO: ARE YOU ALLERGIC TO SHELLFISH OR IV DYE? NO . ANY NEW ALLERGIES? NO . PSYCHIATRIC: DO YOU HAVE THOUGHTS OF HURTING YOURSELF OR SOMEONE ELSE? NO . ARE YOU ABUSED, NEGLECTED, OR IN AN UNSAFE ENVIRONMENT? NO . ENDOCRINOLOGY: ARE YOU DIABETIC? NO . OTHER: DO YOU NEED ANY PRESCRIPTIONS? NO . IF YES, PLEASE LIST: ____ . ANY NEW PROBLEMS WITH YOUR MEDICATIONS? NO . WHEN DID YOU LAST EAT? ____ . WHEN DID YOU LAST DRINK? ____ . WHAT DID YOU LAST DRINK? ____ . NAME OF PERSON DRIVING YOU HOME? ____ . DO YOU HAVE ANY OTHER QUESTIONS OR CONCERNS NO . VITAL SIGNS WT 239 LBS, HT 71", BMI 33.33 INDEX, BP 147/105 MM HG, HR 71 /MIN, RR 18 /MIN, TEMP 98.5 F, OXYGEN SAT % 96%, NA INITIALS SC 11:49, REVIEWED BY: KG. EXAMINATION GENERAL EXAMINATION: GENERAL APPEARANCE:ALER/NO ACUTE DISTRESS. NECK:NEGATIVE FOR LYMPHADENOPATHY. CHEST:CLEAR/RESPIRATIONS NON LABORED. HEART:S1/S2 NL RATE /RHYTHM. ABDOMEN:SOFT AND NOT TENDER.WELL HEALED SURGICAL INCISION LEFT LOWER ABDOMINAL-NON TENDER.. 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 IT IS NOT A COPY OF THE [employer] PROGRESS NOTE. MTDD
== END ==
LOC: M PAIN 11:00
PROVIDERS: ATTEND Nurse Practitioner Family
DX: G89.29 Other chronic pain (principal); G57.12 Meralgia paresthetica, left lower limb; F43.10 Post-traumatic stress disorder, unspecified; G47.30 Sleep apnea, unspecified; I10 Essential (primary) hypertension; Z79.899 Other long term (current) drug therapy

== ENCOUNTER → 2017-06-07 | Outpatient (CLI) | payer OTHER | LOC: M LRY 11:34 | DX: M77.32 Calcaneal spur, left foot (principal) | CPT/HCPCS: 73630 ==

== ENCOUNTER → 2017-06-07 | Outpatient (REF) | payer OTHER ==
[2017-06-07 13:24] LABS: BASO # 0.1 10^3/uL (0.0-0.2); BASO % 0.7 % (0.0-1.0); EOS # 0.1 10^3/uL (0.0-0.50); EOS % 0.8 % (0.0-3.0); IMMATURE GRANULOCYTE # 0.1 10^3/uL (0-0); IMMATURE GRANULOCYTE % 0.4 % (0-0); LYMPH # 2.2 10^3/uL (1.5-4.5); LYMPH % 15.9 % (24.0-44.0); MEAN CORPUSCULAR HGB CONC 35.7 g/dl (32.0-36.5); MEAN CORPUSCULAR VOLUME 84.1 fl (80.0-96.0); MONO # 0.9 10^3/uL (0.0-0.8); MONO % 6.9 % (0.0-5.0); NEUTROPHILS # 10.2 10^3/uL (1.8-7.7); NEUTROPHILS % 75.3 % (36.0-66.0); PLATELET COUNT, AUTOMATED 318 10^3/uL (150-450); RED CELL DISTRIBUTION WIDTH 12.3 % (11.5-14.5); WHITE BLOOD COUNT 13.5 10^3/uL (4.0-10.0)
[2017-06-07 13:37] LABS: ALBUMIN 4.7 GM/DL (3.2-5.2); ALBUMIN/GLOBULIN RATIO 1.74 (1.00-1.93); ALKALINE PHOSPHATASE 62 U/L (45-117); ALT/SGPT 51 U/L (12-78); ANION GAP 8 MEQ/L (8-16); AST/SGOT 23 U/L (7-37); BILIRUBIN,TOTAL 2.2 MG/DL (0.2-1.0); BLOOD UREA NITROGEN 13 MG/DL (7-18); CALCIUM LEVEL 9.3 MG/DL (8.5-10.1); CARBON DIOXIDE LEVEL 29 MEQ/L (21-32); CHLORIDE LEVEL 103 MEQ/L (98-107); CREATININE FOR GFR 1.22 MG/DL (0.70-1.30); GLOMERULAR FILTRATION RATE > 60.0 (>60); GLUCOSE, FASTING 116 MG/DL (70-105); POTASSIUM SERUM 4.3 MEQ/L (3.5-5.1); SODIUM LEVEL 140 MEQ/L (136-145); TOTAL PROTEIN 7.4 GM/DL (6.4-8.2); URIC ACID 8.6 MG/DL (3.5-7.2)
[2017-06-07 19:50] LABS: AMYLASE 50 U/L (25-115)
== END ==
LOC: M SFHCLERA 11:16
DX: M79.672 Pain in left foot (principal); M10.9 Gout, unspecified
CPT/HCPCS: 82150

== ENCOUNTER 2019-11-16 16:52 | Emergency (ER) | payer OTHER ==
[~2019-11-16] VITALS: Ht 180.3 cm; Wt 105.9 kg
[~2019-11-16 16:52] MED LIST changes: +CHLO125TA PO; -CHLO25TA PO; +HYDR-3715 PO; -NORCOTAB PO; +TRAZ-252 PO; -TRAZ50TA11 PO
[2019-11-16 17:34] LABS: VENOUS BASE EXCESS -2.6 (-2.0-2.0); VENOUS HCO3 22.4 MEQ/L (23.0-27.0); VENOUS O2 SATURATION 83.9 % (60.0-80.0); VENOUS PARTIAL PRESSURE CO2 39.9 mmHg (38.0-50.0); VENOUS PARTIAL PRESSURE O2 47.6 mmHg (30.0-50.0); VENOUS PH 7.368 UNITS (7.330-7.430); VENOUS TOTAL CO2 23.7 MEQ/L (24.0-28.0)
[2019-11-16] MEDS ORDERED: NS 1,000 ML IV ONE ×2 (18:00→21:30)
[2019-11-16] MEDS ORDERED: HumuLIN R (REGULAR) INSULIN (NovoLIN R) **100U/ML** PER UNIT IV ONE ×3 (18:00→21:15)
[2019-11-16 18:18] LABS: ACETONE/KETONE 37.24 MG/DL (<2.81); ALBUMIN 4.3 GM/DL (3.2-5.2); BILIRUBIN,DIRECT 0.5 MG/DL (0.0-0.2); BILIRUBIN,TOTAL 2.3 MG/DL (0.2-1.0); TOTAL PROTEIN 7.2 GM/DL (6.4-8.2)
[2019-11-16 18:43] LABS: BASO # 0.1 10^3/uL (0.0-0.2); BASO % 0.4 % (0.0-1.0); EOS % 0.3 % (0.0-3.0); HEMATOCRIT 45.3 % (42.0-52.0); HEMOGLOBIN 16.5 g/dl (13.5-17.5); LYMPH # 1.6 10^3/uL (1.5-5.0); LYMPH % 13.8 % (24.0-44.0); MEAN CORPUSCULAR HEMOGLOBIN 29.8 pg (27.0-33.0); MEAN CORPUSCULAR HGB CONC 36.4 g/dl (32.0-36.5); MEAN CORPUSCULAR VOLUME 81.9 fl (80.0-96.0); MONO % 9.1 % (0.0-5.0); NEUTROPHILS # 8.7 10^3/uL (1.5-8.5); NEUTROPHILS % 76.1 % (36.0-66.0); PLATELET COUNT, AUTOMATED 279 10^3/uL (150-450); RED BLOOD COUNT 5.53 10^6/uL (4.30-6.10); WHITE BLOOD COUNT 11.4 10^3/uL (4.0-10.0)
[2019-11-16 19:10] VITALS: BP 140/88
[2019-11-16] MEDS ORDERED: LABETALOL 100MG/20ML VIAL IV STA (19:10)
[2019-11-16] MEDS ORDERED: metFORMIN (GLUCOPHAGE) 500 MG TAB PO ONE (19:30)
[2019-11-16] MEDS ORDERED: ONDANSETRON 4MG/2ML VIAL IV ONE (19:30)
[2019-11-16 20:19] LABS: HEMOGLOBIN A1c 11.2 %
--- NOTE | 2019-11-16 21:11 | ECGEPIP ---
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
[2019-11-16] MEDS ORDERED: LISI10TA4 PO (22:40)
[2019-11-16] MEDS ORDERED: METF-839 PO (22:40)
[2019-11-16 22:45] VITALS: BP 162/92
--- NOTE | 2019-11-17 03:00 | REP ---
SINGLE-VIEW CHEST, 11/16/2019: INDICATION: Dyspnea. COMPARISON: 01/27/2014 FINDINGS: There is no pleural effusion, pneumothorax, or pulmonary consolidation. The cardiac silhouette is normal. IMPRESSION: No acute cardiopulmonary process. MTDD
== END 2019-11-16 23:19 | disposition home or self-care (01) ==
LOC: EDBD 16:52 → M ED 16:52 → EDUNIT# 16:52 → M ED 23:19
DX: E11.65 Type 2 diabetes mellitus with hyperglycemia (principal); I10 Essential (primary) hypertension; Z79.899 Other long term (current) drug therapy; Z87.442 Personal history of urinary calculi
CPT/HCPCS: 71045; 80047; 80076; 81001; 82010; 82803; 83036; 83690; 83930; 85025; 93005; 93041; 94760; 96361; 96374; 96375; 96376; 99285; J2405

== ENCOUNTER → 2019-11-24 | Outpatient (REF) | payer OTHER ==
[~2019-11-24] MED LIST changes: +LISI10TA22 PO; +METF-839 PO
[2019-11-24 19:44] LABS: MALB URINE SIEMENS 30.5 MG/L; MAU/CREAT RATIO 12.9 MCG/MG (0.0-30.0)
== END ==
LOC: M LAB REF 16:50
PROVIDERS: ATTEND Nurse Practitioner Family
DX: E11.65 Type 2 diabetes mellitus with hyperglycemia (principal)

== ENCOUNTER → 2020-11-29 | Outpatient (REF) | payer OTHER ==
[2020-11-29 18:31] LABS: CREATININE, URINE 87.8 MG/DL; MALB URINE SIEMENS 8.9 MG/L; MAU/CREAT RATIO 10.1 MCG/MG (0.0-30.0)
== END ==
LOC: M LAB REF 17:26
PROVIDERS: ATTEND Nurse Practitioner Family
DX: E11.65 Type 2 diabetes mellitus with hyperglycemia (principal)

== ENCOUNTER 2025-05-06 18:03 | Emergency (ER) | payer OTHER ==
[~2025-05-06] VITALS: Ht 180.3 cm; Wt 83.2 kg
[~2025-05-06 18:03] MED LIST changes: -DOXY100C PO; +DOXY100C3 PO
[2025-05-06] MEDS: NS (Normal Saline) 0.9% 1,000 ML IV ONE (18:29)
[2025-05-06] MEDS: ONDANSETRON 4MG/2ML VIAL IV ONE ×2 (18:30→20:04)
[2025-05-06] MEDS: KETOROLAC 30 MG/ML 1 ML VIAL IV ONE (18:31)
[2025-05-06 18:53] LABS: BASO # 0.1 10^3/uL (0.0-0.2); BASO % 0.4 % (0.0-1.0); EOS # 0.0 10^3/uL (0.0-0.5); EOS % 0.2 % (0.0-3.0); LYMPH # 1.1 10^3/uL (1.5-5.0); LYMPH % 8.8 % (24.0-44.0); MONO # 0.6 10^3/uL (0.0-0.8); MONO % 5.0 % (2.0-8.0); NEUTROPHILS # 10.4 10^3/uL (1.5-8.5); NEUTROPHILS % 85.2 % (36.0-66.0); PLATELET COUNT, AUTOMATED 284 10^3/uL (150-450)
[2025-05-06 19:16] LABS: ALT/SGPT 16.0 U/L (7.0-40); AST/SGOT 16.0 U/L (<34); CALCIUM LEVEL 9.9 MG/DL (8.5-10.1); CARBON DIOXIDE LEVEL 23.0 MMOL/L (20-31); CHLORIDE LEVEL 98.0 MMOL/L (98-107); CREATININE FOR GFR 1.07 MG/DL (0.70-1.30); GLOMERULAR FILTRATION RATE 85.1 (>60); POTASSIUM SERUM 4.0 MMOL/L (3.5-5.1); SODIUM LEVEL 136.0 MMOL/L (136-145)
[2025-05-06 19:18] LABS: KETONE, URINE AUTO RFX 1+ mg/dL (NEGATIVE); LEUKOCYTE ESTERASE UR AUTO RFX NEGATIVE (NEGATIVE); NITRITE, URINE AUTO RFX NEGATIVE (NEGATIVE); RBC, URINE AUTO RFX 51 /HPF (0-3); SQUAM EPITHELIAL CELL UR AURFX 0 /HPF (0-6); WBC, URINE AUTO RFX 0 /HPF (0-3)
[2025-05-06] MEDS: MORPHINE 4 MG/ML 1 ML VIAL IV ONE (19:19)
[2025-05-06] MEDS ORDERED: ISOVUE-370 76% 100 ML VIAL As Ordered ONE (19:54)
[2025-05-06] MEDS: HumuLIN R (REGULAR) INSULIN (NovoLIN R) **100 U/ML** PER UNIT IV ONE (20:04)
[2025-05-06 20:22] VITALS: TEMP 98.6
[2025-05-06 22:12] VITALS: BP 168/98
[2025-05-06] MEDS ORDERED: PERC5TAB12 PO (22:23)
[2025-05-06] MEDS ORDERED: TAMS1CAP17 PO (22:24)
[2025-05-06] MEDS ORDERED: ONDA-282 PO (22:26)
[2025-05-06] MEDS: TAMSULOSIN 0.4 MG CAP PO ONE (22:27)
[2025-05-06 22:31] VITALS: O2SAT 97
== END 2025-05-06 22:39 | disposition home or self-care (01) ==
LOC: M ED 18:03
DX: N20.1 Calculus of ureter (principal); N13.30 Unspecified hydronephrosis; I10 Essential (primary) hypertension; E11.65 Type 2 diabetes mellitus with hyperglycemia; Z87.442 Personal history of urinary calculi; Z79.4 Long term (current) use of insulin; Z79.899 Other long term (current) drug therapy
CPT/HCPCS: 74177; 80048; 80076; 81001; 83690; 85025; 93041; 96361; 96374; 96375; 99285; J1815; J1885; J2405; J2550; Q9967